=== PATIENT | male | born 1940 | race Caucasian/White ===

== ENCOUNTER 2020-02-10 15:09 | Outpatient (CLI) | payer MEDICARE, OTHER, SELFPAY ==
--- NOTE | ~2020-02-10 | XR_ITS ---
EXAMINATION: XR lumbar spine 2-3V DATE: 02/10/2020 15:32 INDICATION: Lumbar spine fusion. TECHNIQUE: 3 views of lumbar spine were obtained. COMPARISON: None. FINDINGS: There is 3 degrees dextrocurvature of lumbar spine. Vertebral body heights are normal. Inte rvertebral disc heights are normal. There are changes of anterior fusion procedure at L5-S1 with inte rbody devices. There are changes of posterior fusion procedure from L4 to S1 with pedicle screws. The re are endplate osteophytes at most levels. There is mild facet joint osteoarthritis in upper lumbar spine. IMPRESSION: 1. Mild lumbar spondylosis. 2. Anterior fusion procedure at L5-S1 and posterior fusion procedure from L4 to S1. Reviewed, dictated and finalized at location B. DRILL OPERATOR
== END 2020-02-10 15:10 | disposition home or self-care (01) ==
LOC: ANHIMG 15:18
PROVIDERS: PCP Internal Medicine; Visit Provider Neurological Surgery
DX: Z98.1 Arthrodesis status (principal); M47.816 Spondylosis without myelopathy or radiculopathy, lumbar region
CPT/HCPCS: 72100

== ENCOUNTER 2020-03-09 14:28 | Outpatient (CLI) | payer MEDICARE, OTHER, SELFPAY ==
--- NOTE | ~2020-03-09 | XR_ITS ---
XR lumbar spine 2-3V DATE: 03/09/2020 14:49 INDICATION: Lumbar spine fusion TECHNIQUE: AP, lateral and coned lateral lumbosacral views COMPARISON: 03/01/2020 lumbar spine FINDINGS: Status post posterior spinal fusion at L5-S1 and at L4-S1. Interbody spinal fusion at L5-S1 . No interval fracture or bone destruction or spondylolisthesis. There is mild degenerative spurring of the lumbar spine but the lumbar intervertebral disc spaces are relatively preserved. The sacroiliac joints are intact, with evidence of degenerative change. IMPRESSION: No significant change since 02/20/2020 Reviewed, dictated and finalized at location A. E TURNER
== END 2020-03-09 14:29 | disposition home or self-care (01) ==
LOC: ANHIMG 14:33
PROVIDERS: PCP Internal Medicine; Visit Provider Neurological Surgery
DX: Z98.1 Arthrodesis status (principal)
CPT/HCPCS: 72100

== ENCOUNTER 2024-07-26 10:44 | Outpatient (CLI) | payer MEDICARE, SELFPAY ==
--- OUTSIDE RECORDS SUMMARY | 2024-07-26 11:05 | XMS_ITS | Clinical Summary ---
Author Organization [facility] [address] [facility] Address [address] [place] [address] Care Team Providers Care Neurosurgery Research Director Name Role Phone Bhanu Borja MD Primary Care Provider Allergies Active Allergy Reactions Criticality Noted Date Comments Alfuzosin Hypotension,Other (S ee Comments) High 08/16/2017 Severe hypotension Severe hypotension Lisinopril Cough Low 12/20/2019 Oxycodone Other (See Comments),Delirium Medium 03/07/2012 Hallucinations Medications amLODIPine (NORVASC) 5 mg tablet Take 5 mg by mouth 1 time daily as needed for Other (See Comment) (takes if BP is over 160/100). 11/07/19 20 Active insulin glargine (LANTUS) 100 unit/mL injection Inject 18 Units by subcutaneous injection daily with breakfast. Active tamsulosin (FLOMAX) 0.4 mg capsule Take 0.4 mg by mouth daily. Active blood sugar diagnostic Strip USE TO TEST BLOOD BY FINGER STICK ONCE DAILY 12/16/19 21 Active latanoprost (XALATAN) 0.005 % solution Administer in both eyes daily. 05/25/19 22 Active cyclobenzaprin e (FLEXERIL) 5 mg Tablet Take 5 mg by mouth 3 times daily as needed. 03/06/20 23 Active HYDROcodone-ac etaminophen (NORCO) 5-325 mg tablet Take 1 Tablet by mouth every 4 hours as needed. 04/18/19 25 026 Active losartan (COZAAR) 50 mg tablet Take 50 mg by mouth daily. Active Ozempic 0.25 mg or 0.5 mg (2 mg/3 mL) Pen Injector Inject 0.5 mg by subcutaneous injection every 7 days. Monday06/14/19 Active losartan (COZAAR) 100 mg tablet Take 100 mg by mouth daily. 025 Discontinued semaglutide (OZEMPIC SUBCUT) Inject 0.05 mcg by subcutaneous injection every 7 days. 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 08/11/2020 S/P lumbar fusion 08/11/2020 Hard to intubate 01/22/2020 DDD (degenerative disc disease), lumbosacral Facet joint disease of lumbosacral region Acute cystitis without hematuria Longstanding persistent atrial fibrillation History of rheumatic fever Normocytic anemia Type 2 diabetes mellitus wit hout complication, without long-term current use of insulin Essential hypertension Encounters Date Type Department Care Team Description 07/24/2024 Travel 07/22/2024 Telephone [facility] [address] [address] Michel Rust MD Pending Imaging Studies 07/19/2024 Telephone [facility] [address] [address] Michel Rust MD Request for return call 06/03/2024 2:00 PM HEAT TREAT OPERATOR Office Visit [facility] [address] [address] Michel Rust MD Cervical spondylosis with myelopathy (Primary Dx); Flat back syndrome, postprocedural; S/P spinal fusion; Pseudarthrosis after fusion or arthrodesis; Neurogenic claudication due to lumbar spinal stenosis 05/23/2024 Telephone [facility] [address] [address] Michel Rust MD New Patient Appoitment Needed from Last 3 Months Family History Medical History Relation Name Comments Cancer Daughter Cee thyroid and [place] ast cancer Cancer Sister Sherin, glioblastoma Relation Name Status Comments Daughter Cee Alive Father Mother Sister Sherin, Social History Tobacco Use Types Packs/Day Years Used Date Smoking Tobacco: Never Smokeless Tobacco: Never Tobacco Cessation:Counseling Given: Not Answered Alcohol Use Standard Drinks/Week Comments Yes 6 (1 standard drink = 0.6 oz pur e alcohol) social Sex and Gender Information Value Date Recorded Sex Assigned at Male 02/27/2024 3:49 PM HEAT TREAT OPERATOR Legal Sex Male 2:47 PM CDT Gender Identity Male 02/27/2024 3:49 PM HEAT TREAT OPERATOR Sexual Orientation Straight 02/27/2024 3: 49 PM HEAT TREAT OPERATOR Last Filed Vital Signs Vital Sign Reading Time Taken Comments Blood Pressure 166/90 06/03/2024 1:41 PM HEAT TREAT OPERATOR Pulse 84 06/03/2024 1:41 PM HEAT TREAT OPERATOR Temperature 36.7 C (98.1 F) 06/03/2024 1:41 PM HEAT TREAT OPERATOR Respiratory Rate 16 06/03/2024 1:41 PM HEAT TREAT OPERATOR Oxygen Saturation 97% 06/03/2024 1:41 PM HEAT TREAT OPERATOR Inhaled Oxygen Concentration - - Weight 106.6 kg (235 lb) 07/24/2024 10:39 AM CDT Height 185.4 cm (6' 1 ) 07/24/2024 10:39 AM CDT Body Mass Index 31 07/24/2024 10:39 AM CDT Plan of Treatment Upcoming Encounters Date Type Department Care Team (Late st Contact Info) Description 08/01/2024 11:30 AM CDT Appointment [facility] Imaging Services [facility] [address] [place] [address] Michel Rust MD [address] [facility] [address] [place] [address] 08/01/2024 11:45 AM CDT Appointment [facility] Imaging Services [facility] [address] [place] [address] Michel Rust MD [address] [facility] [address] [place] [phone] 08/01/2024 12:00 PM CDT Appointment [facility] Imaging Services [facility] [address] [place] [address] Michel Rust MD [address] [facility] [address] [place] [phone] 08/22/2024 8:00 AM CDT Appointment [facility] [address] [place] [address] Michel Rust MD [address] [facility] [address] [place] [phone] [facility], [place] Generic Anesthesiologist 08/22/2024 9:00 AM CDT Appointment [facility] [address] [place] [address] Michel Rust MD [address] [facility] [address] [place] [phone] [facility], [place] Generic Anesthesiologist 08/22/2024 10:00 AM CDT Hospital Encounter [facility] [address] [place] [address] Michel Rust MD [address] [address] [facility], [place] Generic Anesthesiologist 09/02/2024 2:00 PM CDT Office Visit [facility] [address] [facility] [address] [place] [phone] Michel Rust MD [address] [address] Health Maintenance Due Date Last Done Comments DIABETES MICROALBUMIN ANNUAL SCREEN 1960 LDL CHOLESTEROL ANNUAL 1960 DTAP/TDAP/TD VACCINES (1 - Tdap) 1961 PNEUMOCOCCAL VACCINE 50+ YEA RS (1 of 2 - PCV) 1961 ZOSTER VACCINE (1 of 2) 1992 RSV VACCINE (60+ or ) (1 - 1-dose 75+ series) 2017 INFLUENZA VACCINE (#1) 2023 Medicare [place] Preventative Visit/Annual Wellness Visit 04/03/2024 07/28/2023, 07/25/2022, 07/01/2021 DIABETES HBA1C Q 6 MONTHS 07/24/20242023, 07/20/2022, 01/03/2022, Additional history exists DIABETES ANNUAL FOOT EXAM 02/01/2025 02/02/2024 DIABETES ANNUAL RETINAL EXAM 03/14/202503/2024, 09/15/2022, 07/15/2022, Additional history exists COLORECTAL SCREENING Discontinued 06/28/2013 Colorectal Cancer Screening Discontinued FIT-DNA Q 3 years Discontinued FIT/FOBT Q 1 year Discontinued Flex Sig/CT Colonography Q 5 years Discontinued Medical Devices Implanted Type Area Interpreter For The Deaf Device Identifier Shelf Expiration Date Model / Serial / Lot Filler Bone Stimulan Paste 5cc W/Beads 620-005 - Sna Implanted:Qty: 1 on 01/22/2020 by Pan Rudolph MD at [facility] Biological N/A: Spine Lumbar [employer] 05/03/2022 620-005 / NA / [id number] Description:JEFF REQ#[id number] Hemostatic Surgiflo 8ml W/Thrombin 2994 - Sn/A Implanted:Qty: 1 on 01/22/2020 by Pan Rudolph MD at [facility] Hemostatic N/A: Spine Lumbar [employer] 12/31/2020 2994 / N/A / [id number] Mingo Solera Ccm Crv [id number] - Sn/A Implanted:Qty: 2 on 01/22/2020 by Pan Rudolph MD at [facility] Mingo N/A: Spine Lumbar [employer] SOFAMOR DANEK [id number] / N/A / N/A Description:LOAD NUMBER: [id number] STERILIZED NUMBER: [id number] JEFF REQ#[id number] Screw Solera Ma 7.5x60mm [id number] Implanted:Qty: 1 on 01/22/2020 by Pan Rudolph MD at [facility] N/A: Spine Lumbar [employer] [id number] / STERILIZED 01/21/2020 / LOAD #[id number] Description:ENTERED BY RN 10 [id number] 1X ADD Screw Solera Breakoff [id number] - Sn/A Implanted:Qty: 6 on 01/22/2020 by Pan Rudolph MD at [facility] N/A: Spine Lumbar [employer]ANE[employer] [id number] / N/A / N/A Description:LOAD NUMBER: [id number] STERILIZED NUMBER: [id number] Screw Solera Ma 5.5x40mm [id number] - Sn/A Implanted:Qty: 1 on 01/22/2020 by Pan Rudolph MD at [facility] N/A: Spine Lumbar [employer] [id number] / N/A / N/A Description:LOAD NUMBER: [id number] STERILIZED NUMBER: [id number] Screw Solera Ma 5.5x45mm [id number] - Sn/A Implanted:Qty: 1 on 01/22/2020 by Pan Rudolph MD at [facility] N/A: Spine Lumbar [employer] [id number] / N/A / N/A Description:LOAD NUMBER: [id number] STERILIZED NUMBER: [id number] Screw Solera Ma 7.5x45mm [id number] - Sn/A Implanted:Qty: 2 on 01/22/2020 by Pan Rudolph MD at [facility] N/A: Spine Lumbar [employer] [id number] / N/A / N/A Description:LOAD NUMBER: [id number] STERILIZED NUMBER: [id number] Screw Solera Ma 7.5x50mm [id number] - Sn/A Implanted:Qty: 1 on 01/22/2020 by Pan Rudolph MD at [facility] N/A: Spine Lumbar [employer] [id number] / N/A / N/A Description:LOAD NUMBER: [id number] STERILIZED NUMBER: [id number] Infuse Protein Kit [id number] - Sn/A Implanted:Qty: 1 on 01/22/2020 by Pan Rudolph MD at [facility] Tissue N/A: Spine Lumbar [employer]K 12/01/2020 [id number] / N/A / [id number] Description:REQ [id number] Allograft Magnifuse Pc [id number] - [id number] Implanted:Qty: 1 on 01/22/2020 by Pan Rudolph MD at [facility] Tissue N/A: Spine Lumbar [employer] 07/03/2021 [id number] / [id number] / N/A Description:REQ [id number] Insurance [facility] [id number] RX [facility] Medicare Part D RX [employer] (INTERNAL) [facility] Plans Advance Directives For more information, please contact: [phone] Documents on File Type Date Recorded 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
--- OUTSIDE RECORDS SUMMARY | 2024-07-26 11:05 | XMS_ITS | Clinical Summary ---
Author Organization [facility] Address [address] [place] [address] Phone Care Team Providers Care Media Relations Associate Name Role Phone Bhanu Borja MD Primary Care Provider Allergies Active Allergy Reactions Criticality Noted Date Comments Hydrocodone Other (see Comments) Low 06/06/2019 Hallucinations and felt like I was out of my head . Lisinopril Other (see Comments) Low 06/06/2019 Reaction: Cough, Reaction: Cough, Medications insulin degludec (TRESIBA) 100 UNIT/ML Solution Pen-injector 16 Units by Subcutaneous route. 5 Active losartan (COZAAR) 50 MG Tablet Take 50 mg by mouth. 4 12/13/19 25 Active Ozempic, 0.25 or 0.5 MG/DOSE, 2 MG/3ML Solution Pen-injector INJECT 0.5 MG UNDER THE SKIN ONCE A WEEK 4 Active Active Problems Problem Noted Date Diagnosed Date Acute renal failure 06/04/2024 Longstanding persistent atrial fibrillation 07/2024 Hypertension associated with diabetes 08/17/2013 Overview (06/04/2024): BENIGN HYPERTENSION Encounters Date Type Department Care Team Description 06/04/2024 10:00 AM NUCLEAR RADIATION ENGINEER Urgent Care Visit [facility] [place] [address] [place] [address] Kaylee Lan, ONLINE MERCHANDISING MANAGER, GEOTHERMAL INSTALLER Influenza A (Primary Dx); Cough in adult; Generalized body aches; Hypertension associated with diabetes (HCC); Acute renal failure, unspecified acute renal failure type (HCC) Discharge Disposition: Discharged to home or Selfcare 06/04/2024 Travel from Last 3 Months Social History Tobacco Use Types Packs/Day Years Used Date Smoking Tobacco: Never Passive Smoke Exposure: Never Smokeless Tobacco: Never Tobacco Cessation:Counseling Given: Not Answered Sex and Gender Information Value Date Recorded Sex Assigned at Not on file Legal Sex Male 7:30 PM CDT Gender Identity Not on file Sexual Orientation Not on file Last Filed Vital Signs Vital Sign Reading Time Taken Comments Blood Pressure 158/86 06/04/2024 10:43 AM NUCLEAR RADIATION ENGINEER Pulse 100 06/04/2024 10:09 AM NUCLEAR RADIATION ENGINEER Temperature 36.9 C (98.4 F) 06/04/2024 10:09 AM NUCLEAR RADIATION ENGINEER Respiratory Rate 20 06/04/2024 10:0 9 AM NUCLEAR RADIATION ENGINEER Oxygen Saturation 94% 06/04/2024 10: 09 AM NUCLEAR RADIATION ENGINEER Inhaled Oxygen Concentration - - Weight 111.7 kg (246 lb 3.2 oz) 025 10:09 AM NUCLEAR RADIATION ENGINEER Height - - Body Mass Index - - Plan of Treatment Health Maintenance Due Date Last Done Comments Diabetes: Foot Exam 1940 Hepatitis C Virus (HCV) Screening 1940 TdaP Immunization 1942 Diabetes: Nephropathy Screening 1960 Pneumococcal Immunization (5 0+ years) (1 of 2 - PCV) 1961 Zoster Immunization (1 of 2) 1992 Respiratory Syncytial Virus (RSV) Immunization (Adult) (1 - 1-dose 75+ series) 2017 Influenza Immunization (#1) 2023 SARS-COV-2 Immunization ( - season) 2023 Diabetes: Hemoglobin A1c 07/24/2024 01/24/2024 Diabetes: Eye Exam 03/14/2025 03/14/2024 Hepatitis B Immunization Aged Out No longer eligible based on patient's age to complete this topic Meningococcal Immunization (ACWY) Aged Out No longer eligible based on patient's age to complete this topic Rotavirus Immunization Aged Out No lo nger eligible based on patient's age to complete this topic Procedures Procedure Name Priority Date/Time Associated Diagnosis Comments POC INFLUENZA A AND B BY MOLECULAR Routine 06/04/2024 10:29 AM NUCLEAR RADIATION ENGINEER Cough in adult Generalized body aches POC SARS-COV-2 BY MOLECULAR Routine 06/04/2024 10:28 AM NUCLEAR RADIATION ENGINEER Cough in adult Generalized body aches from Last 3 Months Results * (ABNORMAL) POC INFLUENZA A AND B BY MOLECULAR (06/04/2024 10:29 AM NUCLEAR RADIATION ENGINEER) INFLUENZA A RNA Positive(A) Negative, Invalid INFLUENZA B RNA Negative Negative, Invalid PROCEDURE CONTROL Valid 06/04/2024 10:2 9 AM NUCLEAR RADIATION ENGINEER Kaylee Lan APRN, CARMINE POINT OF CARE TESTI NG (MANUAL) Final Result * POC SARS-COV-2 BY MOLECULAR (06/04/2024 10:28 AM NUCLEAR RADIATION ENGINEER) SARSCOV2 Negative Negative, INVALID PROCEDURE CONTROL Valid 06/04/2024 10:2 8 AM NUCLEAR RADIATION ENGINEER us Kaylee Lan APRN, CARMINE POINT OF CARE TESTI NG (MANUAL) Final Result from Last 3 Months Insurance MEDICARE C [facility] Care Teams Media Relations Associate Relationship Specialty Start Date End Date Bhanu Borja MD [address] [facility] [address] [address] PCP - General Internal Medicine 06/04/24
--- OUTSIDE RECORDS SUMMARY | 2024-07-26 11:05 | XMS_ITS | Encounter Summary ---
Author Organization [facility] Address [address] [address] Care Team Providers Care Medical Service Representative Name Role Phone Unavailable Primary Care Provider Unavailabl e Encounter Details Date Type Department Care Team (Late st Contact Info) Description 07/05/2023 Lab Requisition [facility] - DermPath Lab [address] [facility] [place] [phone] Juan Maldonado Jr., MD [address] [facility] [address] [place] [address] Social History Tobacco Use Types Packs/Day Years Used Date Smoking Tobacco: Never Assessed Sex and Gender Information Value Date Recorded Sex Assigned at Not on file Legal Sex Male 11:19 AM CDT Gender Identity Not on file Sexual Orientation Not on file documented as of this encounter Plan of Treatment Not on file documented as of this encounter Procedures Procedure Name Priority Date/Time Associated Diagnosis Comments DERMATOPATHOLOGY Routine 07/05/2023 3:33 AM CDT documented in this encounter Results * DERMATOPATHOLOGY (07/05/2023 3:33 AM CDT) Case Report Dermatopathology Report Case: [id number] Authorizing Provider: Juan Maldonado Jr., MD Collected: 07/05/2023 03:33 AM Ordering Location: [facility] - Received: 07/05/2023 11:54 AM DermPath Lab Pathologist: Joan Kumari MD Specimen: Skin, right lateral abdomen 1:18 PM CDT DERMATOPATHOLOGY LABORATORY Final Diagnosis Specimen A. SKIN, right lateral abdomen: BASAL CELL CARCINOMA (C44.519) NOT PRESENT AT MARGIN DERMAL SCAR (L90.5) 1:18 PM CDT DERMATOPATHOLOGY LABORATORY Clinical History Basal cell Carcinoma, Check Margins 1:18 PM T DERMATOPATHOLOGY LABORATORY Gross Description Specimen A: Received is one formalin filled container labeled with the patient's name and designated right lateral abdomen.The specimen consists of an ellipse measuring 43g21e4 mm and is oriented with the suture/notch at the 3 o'clock position labeled on the requisition as superior. Also, there a lesion measuring 2x3 mm. The 12 to 6 o'clock margin is inked green. The 6 o'clock to 12 o'clock margin is inked red. The 12 o'clock tip is submitted in cassette 1. The 6 o'clock tip is submitted in cassette 2. The remainder of the ellipse is serially sectioned and submitted in cassettes 3 - 4. Jar 0. 1:18 PM T DERMATOPATHOLOGY LABORATORY Microscopic Description Specimen A. SKIN, right lateral abdomen: Within the dermis there are aggregates of basaloid cells with a high nuclear to cytoplasmic ratio and peripheral palisading. This lesion is not present at the margin of the specimen. There are fibroblasts and collagen bundles oriented parallel to the skin surface with elongated blood vessels, some of which are oriented perpendicular to the skin surface. 1:18 PM T DERMATOPATHOLOGY LABORATORY Disclaimer An external and internal positive and negative controls are appropriate for the histochemical, immunohistochemical and immunofluorescence stain(s) in this case (if any), except where stated explicitly. The performance characteristics of the stain(s) cited in this report were developed and its performance characteristic determined by the Dermatopathology Laboratory at [facility], directed by Dr. Afia Gomez. These tests need not be, and therefore are not, approved by the [place] Food and Drug Administration. The tests are used for clinical purposes. Billing Codes Specimen Charges Stain Charges 29239 1 1:18 PM CDT DERMATOPATHOLOGY LABORATORY Embedded Images 1:18 PM CDT DERMATOPATHOLOGY LABORATORY Pathology/Cytolo gy TISSUE SPECIMEN FROM SKIN / Unknown 07/05/2023 3:33 AM CDT 07/05/2023 11:54 AM CDT us Juan Maldonado Jr., MD LAB - PATHOLOGY/CYTOLOG Y ORDERABLES Final Result DERMATOPATHOLOGY LABORATORY [facility] - Department of Dermatology [facility] Medicine [address] [place] [address], [address] [phone] documented in this encounter Visit Diagnoses Not on filedocumented in this encounter
--- OUTSIDE RECORDS SUMMARY | 2024-07-26 11:05 | XMS_ITS | Encounter Summary ---
Author Organization [facility] Address [address] [place] [address] Care Team Providers Care Delivery Nurse Name Role Phone Unavailable Primary Care Provider Unavailabl e Encounter Details Date Type Department Care Team (Late st Contact Info) Description 01/26/2024 Lab Requisition [facility] - DermPath Lab [address] [facility], [place] [id number] Juan Maldonado Jr., MD [address] [facility] [address] [place] [address] Social History Tobacco Use Types Packs/Day Years [...] Priority Date/Time Associated Diagnosis Comments DERMATOPATHOLOGY Routine 01/25/2024 3:33 AM CDT documented in this encounter Results * DERMATOPATHOLOGY (01/25/2024 3:33 AM CDT) Case Report Dermatopathology Report Case: [id number] Authorizing Provider: Juan Maldonado Jr., MD Collected: 01/25/2024 03:33 AM Ordering Location: [facility] - Received: 01/26/2024 11:27 AM DermPath Lab Pathologist: Joan Kumari MD Specimen: Skin, right proximal dorsal forearm 2:37 PM CDT DERMATOPATHOLOGY LABORATORY Final Diagnosis Specimen A. SKIN, right proximal dorsal forearm: BASAL CELL CARCINOMA (C44.612) NOT PRESENT AT MARGIN DERMAL SCAR (L90.5) 2:37 PM CDT DERMATOPATHOLOGY LABORATORY Clinical History BCC 2:37 PM T DERMATOPATHOLOGY LABORATORY Gross Description Specimen A: Received is one formalin filled container labeled with the patient's name and designated right proximal dorsal forearm.The specimen consists of an ellipse measuring 09w81t6 mm and is oriented with the suture at the 12 o'clock position labeled on the requisition as suture. The 12 to 6 o'clock margin is inked green. The 6 o'clock to 12 o'clock margin is inked red. The 12 o'clock tip is submitted in cassette 1. The 6 o'clock tip is submitted in cassette 2. The remainder of the ellipse is serially sectioned and submitted in cassettes 3-4. Jar 0. 2:37 PM [facility] DERMATOPATHOLOGY LABORATORY Microscopic Description Specimen A. SKIN, right proximal dorsal forearm: Within the dermis there are aggregates of basaloid cells with a high nuclear to cytoplasmic ratio and peripheral palisading. This lesion is not present at the margin of the specimen. There are fibroblasts and collagen bundles oriented parallel to the skin surface with elongated blood vessels, some of which are oriented perpendicular to the skin surface. 2:37 PM T DERMATOPATHOLOGY LABORATORY Disclaimer An external and internal positive and negative controls are appropriate for the histochemical, immunohistochemical and immunofluorescence stain(s) in this case (if any), except where stated explicitly. The performance characteristics of the stain(s) cited in this report were developed and its performance characteristic determined by the Dermatopathology Laboratory at [facility], directed by Dr. Afia Gomez. These tests need not be, and therefore are not, approved by the [place] Food and Drug Administration. The tests are used for clinical purposes. Billing Codes Specimen Charges Stain Charges 65728 1 2:37 PM CDT DERMATOPATHOLOGY LABORATORY Embedded Images 2:37 PM T DERMATOPATHOLOGY LABORATORY Pathology/Cytolo gy TISSUE SPECIMEN FROM SKIN / Unknown 01/25/2024 3:33 AM CDT 01/26/2024 11:27 AM CDT us Juan Maldonado Jr., MD LAB - PATHOLOGY/CYTOLOG Y ORDERABLES Final Result DERMATOPATHOLOGY LABORATORY [facility] - Department of Dermatology [facility] Medicine [address] [place] [address], [address] [phone] documented in this encounter Visit Diagnoses Not on filedocumented in this encounter
--- OUTSIDE RECORDS SUMMARY | 2024-07-26 11:05 | XMS_ITS | Encounter Summary ---
Author Organization [facility] Address [address] [place] [address] Care Team Providers Care Scale Operator Name Role Phone Unavailable Primary Care Provider Unavailabl e Encounter Details Date Type Department Care Team (Late st Contact Info) Description 06/04/2021 Lab Requisition [facility] DermPath Lab [address] [facility], [place] [address] Juan Maldonado Jr., MD [address] [facility] [address] [place] [address] Social History Tobacco Use Types Packs/Day Years [...] Priority Date/Time Associated Diagnosis Comments DERMATOPATHOLOGY Routine 06/03/2021 12:0 0 AM VAMP MARKER documented in this encounter Results * DERMATOPATHOLOGY (06/03/2021 12:00 AM VAMP MARKER) Case Report Dermatopathology Report Case: [id number] Authorizing Provider: Juan Maldonado Jr., MD Collected: 06/03/2021 12:00 AM Ordering Location: [facility] DermPath Lab Received: 06/04/2021 12:20 PM Pathologist: Joan Kumari MD Specimen: Skin, right superior central forehead 2 3:22 PM VAMP MARKER DERMATOPATHOLOGY LABORATORY Final Diagnosis Specimen A. 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 2 3:22 PM [facility] DERMATOPATHOLOGY LABORATORY Gross Description Specimen A: Received is one formalin filled container labeled with the patient's name and designated right superior central forehead. The specimen consists of a shave biopsy measuring 7x5x1 mm. Jar 0. 2 3:22 PM [facility] DERMATOPATHOLOGY LABORATORY Microscopic Description Specimen A. SKIN, right superior central forehead: Sections show skin with irregularly shaped nests of keratinocytes with evidence of cornification. In some nests, there is loss of cohesion between the neoplastic cells, as well as individual dyskeratotic cells that lack intercellular bridges. 2 3:22 PM [facility] DERMATOPATHOLOGY LABORATORY Disclaimer An external and internal positive and negative controls are appropriate for the histochemical, immunohistochemical and immunofluorescence stain(s) in this case (if any), except where stated explicitly. The performance characteristics of the stain(s) cited in this report were developed and its performance characteristic determined by the Dermatopathology Laboratory at [facility], directed by Dr. Afia Gomez. These tests need not be, and therefore are not, approved by the [place] Food and Drug Administration. The tests are used for clinical purposes. Billing Codes Specimen Charges Stain Charges 38234 1 2 3:22 PM [facility] DERMATOPATHOLOGY LABORATORY Embedded Images 2 3:22 PM [facility] DERMATOPATHOLOGY LABORATORY Pathology/Cytolog y TISSUE SPECIMEN FROM SKIN / Unknown 06/03/2021 06/04/2021 12:20 PM VAMP MARKER Juan Maldonado Jr., MD LAB - PATHOLOGY/CYTOLOG Y ORDERABLES Final Result DERMATOPATHOLOGY LABORATORY [facility] - Department of Dermatology [address], [address] [phone] documented in this encounter Visit Diagnoses Not on filedocumented in this encounter
--- OUTSIDE RECORDS SUMMARY | 2024-07-26 11:05 | XMS_ITS | Encounter Summary ---
Author Organization [facility] Address [address] [place] [address] Care Team Providers Care Strawberry Grower Name Role Phone Unavailable Primary Care Provider Unavailabl e Encounter Details Date Type Department Care Team (Late st Contact Info) Description 12/01/2023 Lab Requisition [facility] - DermPath Lab [address] [facility] [place] [id number] Juan Maldonado Jr., MD [address] [facility] [address] [place] [address] Social History Tobacco Use Types Packs/Day Years [...] Priority Date/Time Associated Diagnosis Comments DERMATOPATHOLOGY Routine 2023 12:0 0 AM CDT documented in this encounter Results * DERMATOPATHOLOGY (2023 12:00 AM CDT) Case Report Dermatopathology Report Case: [id number] Authorizing Provider: Juan Maldonado Jr., MD Collected: 2023 12:00 AM Ordering Location: [facility] - Received: 12/01/2023 12:26 PM DermPath Lab Pathologist: Venessa Brush MD Specimen: Skin, right proximal dorsal forearm 2:15 PM CDT DERMATOPATHOLOGY LABORATORY Final Diagnosis Specimen A. 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 The specimen consists of a shave biopsy measuring 5x5x1 mm. Jar 0. 2:15 PM CDT DERMATOPATHOLOGY LABORATORY Microscopic Description Specimen A. SKIN, right proximal dorsal forearm: Within the dermis there are aggregates of basaloid cells with a high nuclear to cytoplasmic ratio and peripheral palisading. Within the dermis, there are aggregates of homogenous amorphous basophilic material consistent with calcium. 2:15 PM CDT DERMATOPATHOLOGY LABORATORY Disclaimer An external and internal positive and negative controls are appropriate for the histochemical, immunohistochemical and immunofluorescence stain(s) in this case (if any), except where stated explicitly. The performance characteristics of the stain(s) cited in this report were developed and its performance characteristic determined by the Dermatopathology Laboratory at [facility], directed by Dr. Afia Gomez. These tests need not be, and therefore are not, approved by the [place] Food and Drug Administration. The tests are used for clinical purposes. Billing Codes Specimen Charges Stain Charges 04100 1 2:15 PM CDT DERMATOPATHOLOGY LABORATORY Embedded Images 2:15 PM CDT DERMATOPATHOLOGY LABORATORY Pathology/Cytolog y TISSUE SPECIMEN FROM SKIN / Unknown 2023 12/01/2023 12:26 PM CDT us Juan Maldonado Jr., MD LAB - PATHOLOGY/CYTOLOG Y ORDERABLES Final Result DERMATOPATHOLOGY LABORATORY [facility] - Department of Dermatology [address], [address] [phone] documented in this encounter Visit Diagnoses Not on filedocumented in this encounter
--- OUTSIDE RECORDS SUMMARY | 2024-07-26 11:05 | XMS_ITS | Encounter Summary ---
Author Organization [facility] Address [address] [place] [address] Care Team Providers Care Document Processor Name Role Phone Unavailable Primary Care Provider Unavailabl e Encounter Details Date Type Department Care Team (Late st Contact Info) Description 06/02/2023 Lab Requisition [facility] - DermPath Lab [address] [facility], [place] [phone] Juan Maldonado Jr., MD [address] [facility] [address] [place] [address] Social History Tobacco Use Types Packs/Day Years [...] Priority Date/Time Associated Diagnosis Comments DERMATOPATHOLOGY Routine 06/01/2023 3:33 AM PHARMACY GENERAL MANAGER documented in this encounter Results * DERMATOPATHOLOGY (06/01/2023 3:33 AM PHARMACY GENERAL MANAGER) Case Report Dermatopathology Report Case: [id number] Authorizing Provider: Juan Maldonado Jr., MD Collected: 06/01/2023 03:33 AM Ordering Location: [facility] DermPath Lab Received: 06/02/2023 01:06 PM Pathologist: Venessa Brush MD Specimens: A) - Skin, right superior lateral lower back B) - Skin, left superior forehead C) - Skin, right central parietal 3:04 PM PHARMACY GENERAL MANAGER DERMATOPATHOLOGY LABORATORY Final Diagnosis Specimen A. SKIN, right superior lateral lower back: BASAL CELL CARCINOMA, NODULAR TYPE (C44.519) Specimen B. SKIN, left superior forehead: BASAL CELL CARCINOMA, NODULAR TYPE (C44.319) Specimen C. SKIN, right central parietal: BASAL CELL CARCINOMA, NODULAR TYPE (C44.41) 3:04 PM [facility] DERMATOPATHOLOGY LABORATORY Clinical History A-C: Basal Cell Carcinoma. 3:04 PM [facility] DERMATOPATHOLOGY LABORATORY Gross Description Specimen A: Received is one formalin filled container labeled with the patient's name and designated right superior lateral lower back. The specimen consists of a shave biopsy measuring 9x5x1 mm. Jar 0. Specimen B: Received is one formalin filled container labeled with the patient's name and designated left superior forehead. The specimen consists of a shave biopsy measuring 7x6x1 mm. Jar 0. Specimen C: Received is one formalin filled container labeled with the patient's name and designated right central parietal. The specimen consists of a shave biopsy measuring 8x5x1 mm. Jar 0. 3:04 PM [facility] DERMATOPATHOLOGY LABORATORY Microscopic Description Specimen A. SKIN, right superior lateral lower back: Within the dermis there are aggregates of basaloid cells with a high nuclear to cytoplasmic ratio and peripheral palisading. Specimen B. SKIN, left superior forehead: Within the dermis there are aggregates of basaloid cells with a high nuclear to cytoplasmic ratio and peripheral palisading. Specimen C. SKIN, right central parietal: Within the dermis there are aggregates of basaloid cells with a high nuclear to cytoplasmic ratio and peripheral palisading. 3:04 PM [facility] DERMATOPATHOLOGY LABORATORY Disclaimer An external and internal positive and negative controls are appropriate for the histochemical, immunohistochemical and immunofluorescence stain(s) in this case (if any), except where stated explicitly. The performance characteristics of the stain(s) cited in this report were developed and its performance characteristic determined by the Dermatopathology Laboratory at [facility], directed by Dr. Afia Gomez. These tests need not be, and therefore are not, approved by the [place] Food and Drug Administration. The tests are used for clinical purposes. Billing Codes Specimen Charges Stain Charges 83594 43296 49738 1 1 1 3:04 PM [facility] DERMATOPATHOLOGY LABORATORY Embedded Images 3:04 PM PHARMACY GENERAL MANAGER DERMATOPATHOLOGY LABORATORY Pathology/Cytology TISSUE SPECIMEN FROM SKIN / Unknown 06/01/2023 3:33 AM PHARMACY GENERAL MANAGER 06/02/2023 1:06 PM PHARMACY GENERAL MANAGER Miscellaneous samples (specimen) TISSUE SPECIMEN FROM SKIN / Unknown 06/01/2023 3:33 AM PHARMACY GENERAL MANAGER 06/02/2023 1:06 PM PHARMACY GENERAL MANAGER Miscellaneous samples (specimen) TISSUE SPECIMEN FROM SKIN / Unknown 06/01/2023 3:33 AM PHARMACY GENERAL MANAGER 06/02/2023 1:06 PM PHARMACY GENERAL MANAGER Juan Maldonado Jr., MD LAB - PATHOLOGY/CYTOLOG Y ORDERABLES Final Result DERMATOPATHOLOGY LABORATORY [facility] - Department of Dermatology [facility] Specialized Medicine [address] [place] [address], [address] [phone] documented in this encounter Visit Diagnoses Not on filedocumented in this encounter
--- OUTSIDE RECORDS SUMMARY | 2024-07-26 11:05 | XMS_ITS | Encounter Summary ---
Author Organization [facility] Address [address] [place] [address] Care Team Providers Care Human Anatomy Teacher Name Role Phone Unavailable Primary Care Provider Unavailabl e Encounter Details Date Type Department Care Team (Late st Contact Info) Description 08/28/2020 Lab Requisition [facility] DermPath Lab [address] [facility], [place] [phone] Juan Maldonado Jr., MD [address] [facility] [address] [place] [address] Social History Tobacco Use Types Packs/Day Years [...] Priority Date/Time Associated Diagnosis Comments DERMATOPATHOLOGY Routine 08/26/2020 12:0 0 AM CDT documented in this encounter Results * DERMATOPATHOLOGY (08/26/2020 12:00 AM CDT) Case Report Dermatopathology Report Case: [id number] Authorizing Provider: Juan Maldonado Jr., MD Collected: 08/26/2020 12:00 AM Ordering Location: [facility] DermPath Lab Received: 08/28/2020 07:20 AM Pathologist: Donna Gomez MD Specimen: Skin, right distal posterior upper arm 3:15 PM CDT DERMATOPATHOLOGY LABORATORY Final Diagnosis Specimen A. SKIN, right distal posterior upper arm: DERMAL SCAR WITH OVERLYING EPIDERMAL CHANGES (L90.5) RESIDUAL SQUAMOUS CELL CARCINOMA NOT IDENTIFIED (L90.5) BENIGN VERRUCOUS KERATOSIS, INFLAMED AND INCIDENTAL; NOT PRESENT AT MARGIN (L82.1) 3:[address] [facility] DERMATOPATHOLOGY LABORATORY Clinical History Keratoacanthoma. Check margins. . 3:[address] [facility] DERMATOPATHOLOGY LABORATORY Gross Description Specimen A: Received is one formalin filled container labeled with the patient's name and designated right distal posterior upper arm.The specimen consists of an ellipse measuring 28s04t9oe and is oriented with the suture at the 12 o'clock position labeled on the requisition as suture placed superior. The 12 to 6 o'clock margin is inked green. The 6 o'clock to 12 o'clock margin is inked black. The 12 o'clock tip is submitted in cassette 1. The 6 o'clock tip is submitted in cassette 2. The remainder of the ellipse is serially sectioned and submitted in cassettes 3-4. Jar 0. 3:[address] [facility] DERMATOPATHOLOGY LABORATORY Microscopic Description Specimen A. SKIN, right distal posterior upper arm: Sections show focally laminated fibroplasia and prominent blood vessels. There are plump fibrocytes and inflammation. Reactive epidermal changes are also identified consistent with a prior biopsy site. No residual squamous cell carcinoma is identified. In block 3 and 4, sections also show hyperkeratosis, papillomatosis, hypergranulosis, and acanthosis. Inflammatory cells are present within the dermis. These histological findings can be seen in a verruca vulgaris or a seborrheic keratosis. This lesion is not present at the margin of the specimen. 3:[address] [facility] DERMATOPATHOLOGY LABORATORY Disclaimer An external and internal positive and negative controls are appropriate for the histochemical, immunohistochemical and immunofluorescence stain(s) in this case (if any), except where stated explicitly. The performance characteristics of the stain(s) cited in this report were developed and its performance characteristic determined by the Dermatopathology Laboratory at [facility], directed by Dr. Afia Gomez. These tests need not be, and therefore are not, approved by the [place] Food and Drug Administration. The tests are used for clinical purposes. Billing Codes Specimen Charges Stain Charges 91405 1 1 3:15 PM T DERMATOPATHOLOGY LABORATORY Embedded Images 3:15 PM CDT DERMATOPATHOLOGY LABORATORY Pathology/Cytolog y TISSUE SPECIMEN FROM SKIN / Unknown 08/26/2020 08/28/2020 7:20 AM CDT us Juan Maldonado Jr., MD LAB - PATHOLOGY/CYTOLOG Y ORDERABLES Final Result DERMATOPATHOLOGY LABORATORY [facility] - Department of Dermatology [facility] Medicine [address] [place] [address], [address] [phone] documented in this encounter Visit Diagnoses Not on filedocumented in this encounter
--- OUTSIDE RECORDS SUMMARY | 2024-07-26 11:05 | XMS_ITS | Encounter Summary ---
Author Organization [facility] Address [address] [facility] [place] [address] Care Team Providers Care Special Machine Stitcher Name Role Phone Unavailable Primary Care Provider Unavailabl e Encounter Details Date Type Department Care Team (Late st Contact Info) Description 07/30/2020 Lab Requisition [facility] DermPath Lab [address] [facility] [place] [address] Juan Maldonado Jr., MD [address] [facility] [address] [place] [address] Social History Tobacco Use Types Packs/Day Years [...] Priority Date/Time Associated Diagnosis Comments DERMATOPATHOLOGY Routine 07/29/2020 12:0 0 AM CDT documented in this encounter Results * DERMATOPATHOLOGY (07/29/2020 12:00 AM CDT) Case Report Dermatopathology Report Case: [id number] Authorizing Provider: Juan Maldonado Jr., MD Collected: 07/29/2020 12:00 AM Ordering Location: [facility] DermPath Lab Received: 07/30/2020 12:00 PM Pathologist: Donna Gomez MD Specimen: Skin, right distal lateral posterior upper arm 1:50 PM CDT DERMATOPATHOLOGY LABORATORY Final Diagnosis Specimen A. 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 1:50 PM CDT DERMATOPATHOLOGY LABORATORY Gross Description Specimen A: Received is one formalin filled container labeled with the patient's name and designated right distal lateral posterior upper arm. The specimen consists of a shave biopsy measuring 58g57q1zu, bisected. Jar 0. 1 1:50 PM CDT DERMATOPATHOLOGY LABORATORY Microscopic Description Specimen A. SKIN, right distal lateral posterior upper arm: Sections show an endo exophytic crateriform lesion with a keratotic plug, formed by confluent follicle-like structures with relatively large keratinocytes and neutrophilic abscesses. 1:50 PM CDT DERMATOPATHOLOGY LABORATORY Disclaimer An external and internal positive and negative controls are appropriate for the histochemical, immunohistochemical and immunofluorescence stain(s) in this case (if any), except where stated explicitly. The performance characteristics of the stain(s) cited in this report were developed and its performance characteristic determined by the Dermatopathology Laboratory at [facility], directed by Dr. Afia Gomez. These tests need not be, and therefore are not, approved by the [place] Food and Drug Administration. The tests are used for clinical purposes. Billing Codes Specimen Charges Stain Charges 77642 1 1 1:50 PM CDT DERMATOPATHOLOGY LABORATORY Embedded Images 1:50 PM CDT DERMATOPATHOLOGY LABORATORY Pathology/Cytolog y TISSUE SPECIMEN FROM SKIN / Unknown 07/29/2020 07/30/2020 12:00 PM CDT us Juan Maldonado Jr., MD LAB - PATHOLOGY/CYTOLOG Y ORDERABLES Final Result DERMATOPATHOLOGY LABORATORY [facility] - Department of Dermatology [address] [place] [address], [facility] [phone] documented in this encounter Visit Diagnoses Not on filedocumented in this encounter
--- OUTSIDE RECORDS SUMMARY | 2024-07-26 11:05 | XMS_ITS | Referral Summary ---
Author Organization [facility] Address [address] [place] [address] Care Team Providers Care Marketing Content Coordinator Name Role Phone Bhanu Borja MD Primary Care Provider Encounters Date Type Department Care Team Description 07/16/2024 Orders Only [facility] Primary Care at [address] [phone] Bhanu Borja MD Encounter for hearing examination, unspecified whether abnormal findings (Primary Dx) 07/16/2024 8:30 AM CDT Office Visit [facility] Medical [facility] Orthopedics and Sports Medicine [address] [place] [phone] Bhanu Maddox MD Acute medial meniscus tear of left knee, initial encounter (Primary Dx); Primary osteoarthritis of left knee 07/15/2024 Telephone [facility] Primary Care at [address] [phone] Bhanu Borja MD Referral Request 06/17/2024 Orders Only [facility] Primary Care at [address] [place] [phone] Camila Mirza, PARVEEN 06/17/2024 Telephone [facility] Primary Care at [address] [place] [phone] Camila Mirza, TRANSIT MECHANIC 06/14/2024 Telephone [facility] [place] [address] [place] [address] Riana Cox Colonoscopy Reschedule 06/13/2024 Orders Only [facility] Primary Care at [address] [place] [address] Bhanu Borja MD 06/13/2024 Telephone [facility] Primary Care at [address] [place] [address] Bhanu Borja MD Med Refill 06/13/2024 11:00 AM CDT Office Visit [facility] Primary Care at [address] [place] [address] Camila Mirza NP Lower resp. tract infection (Primary Dx); Acute cough; Class 1 obesity with body mass index (BMI) of 31.0 to 31.9 in adult, unspecified obesity type, unspecified whether serious comorbidity present 06/13/2024 Nurse Triage [facility] Primary Care at [address] [place] [address] Bhanu Borja MD 06/03/2024 6:39 AM [employer] - 06/03/2024 11:59 PM [employer] Hospital Encounter [facility] [address] [place] [address] Left knee pain, unspecified chronicity Discharge Disposition: Discharge to home or self care 05/28/2024 Orders Only [facility]ics and [facility] Medicine [address] [place] [address] Bhanu Maddox MD Left knee pain, unspecified chronicity (Primary Dx) 05/28/2024 9:55 AM [employer] - 05/28/2024 11:59 PM [employer] Hospital Encounter [facility] [address] [place] [address] Discharge Disposition: Discharge to home or self care 05/28/2024 9:54 AM [employer] - 05/28/2024 11:59 PM [employer] Hospital Encounter [facility] ([facility]) Critical access hospital[address] [place] [address] Discharge Disposition: Discharge to home or self care 05/28/2024 9:53 AM [employer] - 05/28/2024 11:59 PM [employer] Hospital Encounter [facility] ([facility]) [address] [place] [address] Discharge Disposition: Discharge to home or self care 05/28/2024 9:52 AM [employer] - 05/28/2024 11:59 PM [employer] Hospital Encounter [facility] ([facility]) [address] [place] [address] Discharge Disposition: Discharge to home or self care 05/28/2024 9:51 AM [employer] - 05/28/2024 11:59 PM [employer] Hospital Encounter [facility] ([facility]) [address] [place] [address] Discharge Disposition: Discharge to home or self care 05/23/2024 7:39 AM [employer] - 05/23/2024 11:59 PM [employer] Hospital Encounter [facility] Orthopedics and Sports Medicine [address] [place] [address] Discharge Disposition: Discharge to home or self care 05/23/2024 7:39 AM [employer] - 05/23/2024 11:59 PM [employer] Hospital Encounter [facility] Orthopedics [facility] Sports Medicine [address] [place] [address] [address] [place] [address] Discharge Disposition: Discharge to home or self care 05/23/2024 8:30 AM [employer] Office Visit [facility] Orthopedics [facility] Sports Medicine [address] [place] [address] [address] [place] [address] Bhanu Maddox MD Primary osteoarthritis of left knee (Primary Dx); Left knee pain, unspecified chronicity; Pes anserinus bursitis of left knee 05/16/2024 Orders Only [facility] Orth[facility]edic [facility] [address] [facility] 6th [place] [address] [place] [address] Jori Moreno MD Spinal stenosis of lumbar region with neurogenic claudication (Primary Dx); Lumbar spondylosis 05/13/2024 Orders Only [facility] Primary Care at [address] [place] [address] Bhanu Borja MD Age-related osteoporosis without current pathological fracture (Primary Dx); Coronary artery disease involving [place] coronary artery of [place] heart without angina pectoris 05/08/2024 9:51 AM [employer] - 05/08/2024 11:59 PM [employer] Hospital Encounter [facility]) [address] [place] [address] Spinal stenosis of lumbar region, unspecified whether neurogenic claudication present Discharge Disposition: Discharge to home or self care 05/08/2024 11:00 AM [employer] Office Visit [facility] Orthopaedic Surgery [address] [facility] 6th [address] [place] [address] Jori Moreno MD Spinal stenosis of lumbar region, unspecified whether neurogenic claudication present (Primary Dx); Lumbar radiculopathy from Last 3 Months Allergies Active Allergy Reactions Criticality Noted Date Comments Alfuzosin Hypotension High 08/16/2017 Severe hypotension Hydrocodone Other (See comments) Low 06/06/2019 Hallucinations and felt like I was out of my head . Lisinopril Cough,Other (See comments) Low 06/06/2019 Reaction: Cough, Reaction: Cough, Reaction: Cough, Oxycodone Other (See comments) Medium 03/07/2012 20 years ago had hallucinations but took some after recent back surgery and had no issue. Medications BD Ultra-Fine Micro Pen Needle 32 gauge x 1/4 needle USE ONCE DAILY TO INJECT VICTOZA 100 each 2 021 Active fluorouraciL (EFUDEX) 5 % cream 022 Active blood glucose diagnostic (OneTouch Verio test strips) strip USE TO TEST BLOOD BY FINGER STICK ONCE DAILY 100 strip 1 024 Active losartan (COZAAR) 50 mg tablet Take 1 tablet (50 mg total) by mouth daily 90 tablet 3 024 2024 Active semaglutide (Ozempic) 0.25 mg or 0.5 mg (2 mg/3 mL) pen injector injection INJECT 0.5 MG UNDER THE SKIN ONCE A WEEK 9 mL 3 024 Active latanoprost (XALATAN) 0.005 % ophthalmic solutionIndicati ons:OAG (open angle glaucoma) suspect, high risk, left,Primary open angle glaucoma (POAG) of right eye, moderate stage Administer 1 drop into both eyes every morning 7.5 mL 3 024 Active HYDROcodone-acet aminophen (NORCO) 5-325 mg per tabletIndication s:Pain Take 1 tablet by mouth every 6 (six) hours as needed for pain 60 tablet 025 2025 Active amLODIPine (NORVASC) 5 mg tablet Take 1 tablet (5 mg total) by mouth daily Active insulin degludec (TRESIBA) 100 unit/mL (3 mL) pen for injection Inject 0.18 mL (18 Units total) under the skin daily before breakfast Active albuterol HFA (ProAir HFA) 90 mcg/actuation inhaler Inhale 2 puffs every 4 (four) hours as needed for wheezing or shortness of breath 8.5 g 023 2024 Discontinued(T herapy completed) naloxone (NARCAN) 4 mg/actuation spray,non-aeroso l Administer 1 spray into affected nostril(s) as needed for opioid reversal or respiratory depression Call 911. Administer a single spray in one nostril. Repeat every 3 minutes as needed if no or minimal response. 1 each 023 2024 Discontinued(T herapy completed) cyclobenzaprine (FLEXERIL) 5 mg tabletIndication s:Intervertebral disc disorder with radiculopathy of lumbar region Take 1 tablet (5 mg total) by mouth 3 (three) times a day as needed for muscle spasms 90 tablet 023 2024 Discontinued(T herapy completed) cyclobenzaprine (FLEXERIL) 5 mg tabletIndication s:Radiculopathy, unspecified spinal region Take 1 tablet (5 mg total) by mouth 3 (three) times a day as needed for muscle spasms 90 tablet 5 024 2024 Discontinued(T herapy completed) insulin degludec (TRESIBA) 100 unit/mL (3 mL) pen for injection Inject 0.16 mL (16 Units total) under the skin daily 15 mL 025 2024 Discontinued promethazine-cod eine (PHENERGAN with CODEINE) 1.25-2 mg/mL syrupIndications :Acute cough Take 5 mL by mouth every 6 (six) hours as needed for cough 118 mL 025 2024 Discontinued(T herapy completed) guaiFENesin-code ine (GUAITUSS AC) liquid 100-10 mg/5 mL Take 5-10 mL by mouth every 4 (four) hours as needed for cough 240 mL 1 025 2024 Discontinued(T herapy completed) insulin degludec (TRESIBA) 100 unit/mL (3 mL) pen for injection INJECT 0.16 ML (16 UNITS TOTAL) UNDER THE SKIN DAILY 15 mL 11 025 2024 Discontinued(D uplicate order) Active Problems Problem Noted Date Diagnosed Date Acute medial meniscus tear of left knee 07/23/19 25 Flat back syndrome, postprocedural 06/10/2024 Encounter for screening colonoscopy 02/12/2024 Acute cough 04/11/2023 Assessment & Plan (04/11/2023 11:13 AM [employer]): Acute on chronic problem- this is a recurring problem Ordered covid, flu a/b POC- negative results Due to length of illness we will treat with antibiotic, please complete the whole course of antibiotics-no leftovers Ordered Augmentin 875-125 mg Side effects discussed Please take probiotics for at least a month to help keep your gut health in check as the antibiotic kills the good bacteria along with the bad. This will help decrease the GI side effects you have from the antibiotic Tessalon perles during the day for cough as needed-Rx sent this visit Take meds as directed Increase fluids, rest and handwashing Hot water/hot tea with honey 1 teaspoon of honey every 4 hours No sharing cups or utensils May use vicks vaporub on chest and feet as needed to help with cough Good hand washing routine Tylenol/Iibuprofen as needed for fever, body aches etc Use a humidifier, recommended steam inhalation, hot showers Saline/Salt water gargles, saline nose drops as needed Watch for worsening symptoms, i.e.increasing fever, productive cough, headache, sore throat, excessive tiredness, rash etc No sharing cups or utensils Return to office as needed or if symptoms worsen/change or don't improve in 7- 10 days Pt verbalizes understanding and all questions have been answered Plan CXR if no improvement Class 1 obesity with body ma ss index (BMI) of 31.0 to 31.9 in adult 07/25/2022 Assessment & Plan (06/13/2024 12:40 PM CDT): Wt Readings from Last 3 Encounters: 06/13/24 107.4 kg (236 lb 11.2 oz) 05/23/24 110.2 kg (243 lb) 05/08/24 112.8 kg (248 lb 9.6 oz) Body mass index is 31.24 kg/m . -Stable, not at goal of <30 bmi -Discussed recommendations for exercise at least 30 minutes moderate to vigorous exercise as tolerated most days of the week. (minimum 150 minutes weekly) -Discussed importance of well-balanced diet Diabetic neuropathy, type II diabetes mellitus 1 History of 2019 novel coronavirus disease (COVID -19) 01/06/2022 Lumbar spondylosis 12/09/2021 Bilateral carpal tunnel syndrome 10/22/2021 Guyon syndrome, unspecified laterality 2 Cubital tunnel syndrome, bilateral 10/22/2021 Conductive hearing loss, bilateral 08/02/2021 Assessment & Plan (04/11/2023 11:07 AM [employer]): Chronic problem- stable Encouraged to follow up with ENT for routine check Continue to monitor Assessment & Plan (08/02/2021 12:50 PM CDT): Consider Astelin 2 sprays into each nostril while looking down over the sink, do not sniff in or blow nose after use for at least 30 minutes Try Cetirizine 10 mg daily (zyrtec) Hearing test - Dr. Nolan Consider ear tube placement based on Hearing test results Chronic otitis media of both ears with effusion 06/14/2021 Assessment & Plan (04/11/2023 11:09 AM [employer]): Chronic problem- poorly controlled, this is a recurring problem Ordered Augmentin 875-125 mg- take 1 tablet bid x 10 days Follow up with pcp as scheduled-sooner prn if no improvement Encouraged to avoid excess water, shampoo products in ears Avoid cleaning ears with Q-tips or other objects Recommend over the counter Vapocool lozenges Tylenol/ibuprofen as needed Increase fluids, rest and handwashing Warm saltwater gargles Hot water/hot tea with honey 1 teaspoon of honey every 4 hours Saline rinses to nose at least twice daily No sharing cups or utensils Cool mist humidifier May use vicks vaporub on chest and feet as needed to help with cough Replace toothbrush in 5 days Wash pillow and bed linens Take zyrtec/claritin/daisy in the am Saline rinse in the am Flonase 2 sprays each nostril, aim away from cartilage, spray once-baby sniff, switch to the other nostril and repeat. Saline rinse about 15 min before bed Recommend staying on the above treatment from the beginning of June to end of August Come off of meds if possible during the summer Then restart on meds mid to late November until Thanksgiving Come off of meds if possible during the winter Assessment & Plan (08/02/2021 12:10 PM CDT): Consider Astelin 2 sprays into each nostril while looking down over the sink, do not sniff in or blow nose after use for at least 30 minutes Try Cetirizine 10 mg daily (zyrtec) Hearing test - Dr. Nolan Assessment & Plan (06/14/2021 4:32 PM CDT): Astelin (azelastine) 2 sprays into each nostril while looking down over the sink, do not sniff in or blow nose after use for at least 30 minutes twice daily Cetirizine 10 mg daily (Zyrtec) Cefdinir twice daily with a meal Follow up in 6 weeks, consider ear tube placement if no improvement in Hearing Non-seasonal allergic rhinitis due to pollen Assessment & Plan (04/11/2023 11:06 AM [employer]): Chronic problem-poorly controlled with current regimen Encouraged to schedule appointment with Dr. Child Ordered augmentin 875-125 mg- take 1 tablet bid x 10 days Recommend over the counter Vapocool lozenges Tylenol/ibuprofen as needed Increase fluids, rest and handwashing Warm saltwater gargles Hot water/hot tea with honey 1 teaspoon of honey every 4 hours Saline rinses to nose at least twice daily No sharing cups or utensils Cool mist humidifier May use vicks vaporub on chest and feet as needed to help with cough Replace toothbrush in 5 days Wash pillow and bed linens Take zyrtec/claritin/daisy in the am Saline rinse in the am Flonase 2 sprays each nostril, aim away from cartilage, spray once-baby sniff, switch to the other nostril and repeat. Saline rinse about 15 min before bed Recommend staying on the above treatment from the beginning of June to end of August Come off of meds if possible during the summer Then restart on meds mid to late November until Thanksgiving Come off of meds if possible during the winter Assessment & Plan (06/14/2021 9:01 PM CDT): Astelin (azelastine) 2 sprays into each nostril while looking down over the sink, do not sniff in or blow nose after use for at least 30 minutes twice daily Cetirizine 10 mg daily (Zyrtec) Cefdinir twice daily with a meal Follow up in 6 weeks, consider ear tube placement if no improvement in Hearing Benign prostatic hyperplasia with nocturia 05/17 Intractable vomiting 04/26/2021 Urine frequency 12/30/2020 Iron deficiency anemia 12/30/2020 Facet joint disease of lumbosacral region 2020 History of rheumatic fever 10/11/2020 Longstanding persistent atrial fibrillation 10/01 Status post lumbar spinal fusion 08/11/2020 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 Tracy as scheduled Assessment & Plan (07/17/2022 11:18 AM CDT): F/U with Dr. Tracy as scheduled Assessment & Plan (07/05/2021 7:12 PM CDT): F/U with Dr. Tracy as scheduled Assessment & Plan (05/21/2020 10:19 AM [employer]): Mild left eye (OS)>OD with excellent visual acuity (VA) left eye (OS), good visual acuity (VA) right eye (OD) with paracentral mild cystoid macular edema (CME) , status post (s/p) taper off pred forte /Acular last month. Given mild discussed R/B/A of observation vs anti-VEGF and will plan to defer pending progression. Last A1c 8.7 (02/2020 ) Follow up 2 months Improved diabetes mellitus (DM) control discussed. CME (cystoid macular edema), right 04/06/2020 Assessment & Plan (04/06/2020 7:56 PM [employer]): Resolved by OCT eval Taper off pred forte (PF) and DC ketorolac Vision had refracted to 20/20, but now 20/30 Hard to intubate 01/22/2020 Pseudophakia of right eye 10/21/2019 Assessment & Plan (07/17/2022 11:17 AM CDT): Vision stable- Assessment & Plan (07/06/2020 10:09 PM CDT): Vision stable, limited by retinal disease Assessment & Plan (10/21/2019 1:46 PM CDT): Iritis right eye (OD) Lens centered and stable, pred forte (PF) Q 2-3 hrs Return with increased pain, redness or decreased vision Instructed pt to shake the drops very well Spinal stenosis of lumbar re gion with neurogenic claudication 06/28/2019 Primary open angle glaucoma (POAG) of right eye, moderate stage 06/11/2019 Assessment & Plan (02/20/2024 12:16 PM [employer]): intraocular pressure (IOP) remains acceptable in low-mid teens on latanoprost Guzman visual field (HVF) remains essentially stable c/w 2019 CPM F/U 6 months with OCT RNFL/GCL Assessment & Plan (07/24/2023 10:52 PM CDT): intraocular pressure (IOP) remains acceptable in low-mid teens on latanoprost Stable OCT, ? Visual field (VF) progression right eye (OD) CPM F/U 6 months with repeat Guzman visual field (HVF) right eye (OD) only Assessment & Plan (07/17/2022 11:16 AM CDT): intraocular pressure (IOP) remains acceptable in low-mid teens on latanoprost Stable Guzman visual field (HVF), OCT with artifact CPM F/U annually with Guzman visual field (HVF) 24-2 and OCT F/U Dr. Mckinley in interim with intraocular pressure (IOP) check Assessment & Plan (07/05/2021 7:11 PM CDT): intraocular pressure (IOP) remains acceptable in low-mid teens on latanoprost Stable OCT CPM F/U annually with Guzman visual field (HVF) 24-[address] Tracy in interim with intraocular pressure (IOP) check Assessment & Plan (11/03/2020 12:09 PM CDT): intraocular pressure (IOP) acceptable status post (s/p) KDB on single class CPM F/U 8 months with Guzman visual field (HVF)/OCT F/U with Dr. Tracy as scheduled Assessment & Plan (07/06/2020 10:08 PM CDT): 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 Difficult to identify optic nerve (ON) abnormality by exam due to small discs, but evident on OCT. intraocular pressure (IOP) controlled with avg/thick CCT on single class with moderate visual field (VF) loss (IA) intraocular pressure (IOP) improved/acceptable status post (s/p) cataract extraction (CE)/KDB OD Guzman visual field (HVF) and OCT stable today CPM F/U 4 months Assessment & Plan (04/06/2020 7:54 PM [employer]): 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 Difficult to identify optic nerve (ON) abnormality by exam due to small discs, but evident on OCT. intraocular pressure (IOP) controlled with avg/thick CCT on single class with moderate visual field (VF) loss (IA) intraocular pressure (IOP) improved status post (s/p) cataract extraction (CE)/KDB OD CPM F/U 3 months with Ugzman visual field (HVF)/OCT Assessment & Plan (10/07/2019 9:09 PM CDT): 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 Difficult to identify optic nerve (ON) abnormality by exam due to small discs, but evident on OCT. intraocular pressure (IOP) controlled with avg/thick CCT on single class with moderate visual field (VF) loss (IA) Tmax 20 Recommend cataract extraction (CE) with KDB right eye (OD) Discussed R/B/A and he agrees to proceed Target plano Assessment & Plan (06/11/2019 9:20 PM CDT): 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 Difficult to identify optic nerve (ON) abnormality by exam due to small discs, but evident on OCT. intraocular pressure (IOP) controlled with avg/thick CCT on single class Tmax 20 Recommend cataract extraction (CE) with KDB right eye (OD) Discussed R/B/A OAG (open angle glaucoma) suspect, high risk, le ft 06/11/2019 Assessment & Plan (02/20/2024 12:16 PM [employer]): intraocular pressure (IOP) low to mid teens CPM Assessment & Plan (07/24/2023 10:52 PM CDT): OCT remains with nl nerve fiber layer (NFL), full HVF intraocular pressure (IOP) mid teens CPM Assessment & Plan (07/17/2022 11:16 AM CDT): OCT remains with nl nerve fiber layer (NFL), full HVF intraocular pressure (IOP) mid teens CPM Assessment & Plan (07/05/2021 7:11 PM CDT): OCT remains with nl nerve fiber layer (NFL) intraocular pressure (IOP) mid teens CPM Assessment & Plan (11/03/2020 12:09 PM CDT): intraocular pressure (IOP) acceptable Guzman visual field (HVF) did not confirm nasal loss as noted CPM Assessment & Plan (07/06/2020 10:09 PM CDT): ? Early visual field (VF) loss More likely rim defect CPM F/U with repeat Guzman visual field (HVF) left eye (OS) in 4months OCT stable today Hypertensive retinopathy of both eyes, grade 1 0 06/11/2019 Assessment & Plan (10/07/2019 9:11 PM CDT): Arteriolar attenuation and few dot heme ? diabetes mellitus (DM) vs HTN No macular edema Assessment & Plan (06/11/2019 9:17 PM CDT): Arteriolar attenuation and few dot heme ? diabetes mellitus (DM) vs HTN Permanent atrial fibrillation (CMS/HCC) 01/24/20 18 Assessment & Plan (09/03/2019 1:48 PM CDT): Asymptomatic with heart rate controlled in the 70s w/o beta-natalie or antiarrhythmics. Periodically takes aspirin but not consistently. Risk associated with atrial fib w/o daily antiplatelet/anticoagulant discussed. Will Cnt. To monitor. Assessment & Plan (01/23/2018 12:37 PM CDT): Chronic AFib which is rate with with stable in office today. Long discussion in regard to importance of anticoagulation for cough prevention of patient to come to a decision to not move forward with Eliquis treatment. He was in agreement upon starting back on aspirin therapy however. Follow-up in regard to atrial fib in 3 months as scheduled Controlled type 2 diabetes adeline grigsby without complication, without long-term current use of insulin 08/17/2013 Overview (07/09/2016): DMII WO CMP NT ST UNCNTR Assessment & Plan (12/08/2022 6:51 AM CDT): The patient was counseled on a heart-healthy, diabetic-friendly diet, as well as life-style modification. Education provided on the diagnosis and risks of the disease. We will continue to monitor routine labs. Additionally, the patient was counseled on routine diabetic eye exams, foot exams, and other preventive care. Assessment & Plan (05/04/2021 10:41 AM [employer]): The patient was counseled on a heart-healthy, diabetic-friendly diet, as well as life-style modification. Education provided on the diagnosis and risks of the disease. We will continue to monitor routine labs. Additionally, He was counseled on routine diabetic eye exams, foot exams, and other preventive care. Assessment & Plan (04/06/2020 7:58 PM [employer]OM[employer]): Intraretinal fluid left eye (OS) cystoid macular edema (CME) resolved right eye (OD) Refer to Retina for baseline eval Last QszF5L=0.2 per pt, now on insulin therapy Assessment & Plan (02/05/2020 8:20 AM AUTOMO[employer]LE [employer] MOLDER): The patient was counseled on a heart-healthy, diabetic-friendly diet, as well as life-style modification. Education provided on the diagnosis and risks of the disease. We will continue to monitor routine labs. Additionally, He was counseled on routine diabetic eye exams, foot exams, and other preventive care. Assessment & Plan (10/07/2019 9:12 PM CDT): Mild non-proliferative diabetic retinopathy (NPDR) Lab Results Component Value Date HGBA1C 8.6 (H) 09/11/2019 Assessment & Plan (09/03/2019 1:45 PM CDT): Uncontrolled recent hyperglycemia secondary to steroid injection as last hemoglobin A1c 9.3%. Upcoming labs next week for further evaluation and need for changes in management. Cnt. To monitor weight given weight loss secondary to use of Ozempic. Persistent hyperglycemia encouraged to report office. Cnt. Victoza, metformin, consistent carb diet as prior prescribed. Assessment & Plan (06/11/2019 9:18 PM CDT): Lab Results Component Value Date HGBA1C 9.3 (H) 05/27/2019 Poor control Mild retinopathy left eye (OS) Assessment & Plan (01/23/2018 12:34 PM CDT): A1c increased from 6.9-7.7% over the course of 3 months. I did encourage patient of our goals of 7.5% and he noted to desire to continue with current dosing of Victoza as well as glucose/insulin strongly focus on his improved consistent carb diet in order to improve his fasting glucose office. These averaging 140-150 this time and with will touch base with us if he persistently exceeds over the 140 gildardo prior to next office visit labs. Assessment & Plan (12/19/2017 11:00 AM CDT): The patient was counseled on a heart-healthy, diabetic-friendly diet, as well as life-style modification. Education provided on the diagnosis and risks of the disease. We will continue to monitor routine labs. Additionally, the patient was counseled on routine diabetic eye exams, foot exams, and other preventive care. Hypertension associated with diabetes 08/17/2013 Overview (07/09/2016): BENIGN HYPERTENSION Assessment & Plan (04/11/2023 11:13 AM [employer]OM[employer]): Chronic problem-normally well controlled Continue amlodipine 5 mg daily BP this visit 159/100, rechecked after rest 132/80 Continue to monitor Recommend DASH diet, heart-healthy lifestyle, exercise. Discussed the risks of hypertension. Assessment & Plan (12/08/2022 6:52 AM CDT): Recommend DASH diet, heart healthy lifestyle, exercise. Discussed the risks of hypertension. Assessment & Plan (12/18/2020 8:36 AM CDT): Recommend DASH diet, heart healthy lifestyle, exercise. Discussed the risks of hypertension. Assessment & Plan (02/05/2020 8:20 AM AUTOM[employer]): Recommend DASH diet, heart-healthy lifestyle, exercise. Discussed the risks of hypertension. Assessment & Plan (09/03/2019 1:48 PM CDT): Uncontrolled, symptomatic at home. BP improved with recheck in office today, but quite high at home with little improvement after increasing losartan. No signs of fluid retention and declined desire for diuretic, recommending amlodipine q.h.s. starting at 5 mg to increase to 10 w/o any notable dizziness or leg edema. Recent labs completed in May, EKG in January all reviewed in NL. TSH, CMP to repeat next week after increasing losartan 2 weeks prior with further follow-up. Dash diet, mild to moderate exercise as tolerated. RTC in clinic as scheduled in 2 weeks or sooner as needed. Assessment & Plan (01/23/2018 12:32 PM CDT): Long discussion in office today with patient regarding his uncontrolled blood pressure, as he does not wish to increase of his losartan at this time. He stated he will keep close monitor of his BP readings at home along with implementing DASH diet and mod. Exercise as he previously had. He is agreement of letting us know if his readings are steadily increasing over the next few months until next visit. He was made aware of risk associated with uncontrolled HTN- I did encourage him to start back on his ASA 81mg for both atrial fib and HTN Assessment & Plan (12/19/2017 11:00 AM CDT): Recommend DASH diet, heart healthy lifestyle, exercise. Discussed the risks of hypertension. Arthralgia of shoulder 05/13/2011 Metabolic acidosis Resolved Problems Problem Noted Date Diagnosed Date Resolved Date Encounter for screening colonoscopy 02/12/2024 06/13/2024 Pain in right testicle 05/17/202106/13 Epididymitis, right 04/27/2021 06/14/19 Acute cystitis without hematuria 10/11/2020 05/04/2021 DDD (degenerative disc disease), lumbosacral 12/30/2020 Normocytic anemia 10/11/2020 12/30/2020 Testicular pain, left 09/08/20202020 Testicular swelling, left 09/08/2020 Neurogenic claudication due to lumbar spinal stenosis 08/11/2020 12/30/2020 Recurrent UTI 06/24/2020 12/30/2020 Postop check 10/16/2019 12/30/2020 Assessment & Plan (12/27/2019 11:57 PM CDT): POM2 status post (s/p) cataract extraction (CE)/IOL right eye (OD) cystoid macular edema (CME) resolving well with pred forte (PF) and NSAID Given MRx Taper off pred forte (PF), continue Ketorolac Bid both eyes (OU) F/U 2-3 months/prn (to have spinal surgery next month) with Macula OCT Assessment & Plan (10/25/2019 2:49 PM CDT): POW1 status post (s/p) cataract extraction (CE)/IOL/KDB right eye (OD) Moderate inflammatory rxn at POD4- resolved, no fibrin, subjective resolution Taper pred forte (PF) to qid--tid--bid F/U 1 month/prn intraocular pressure (IOP) acceptable on Latanoprost, CPM for now Discussed with pt- contact with rebound Assessment & Plan (10/16/2019 10:20 AM CDT): Post-operative day #1 s/p CE-IOL + KDB right eye (OD): Doing well. Expected amount of inflammation. Pressure acceptable Med Plan Prednisolone QID right eye (OD) Moxifloxacin QID right eye (OD) Continue latanoprost both eyes (OU) Reviewed signs/symptoms endophthalmitis, RT/RD; patient to call immediately if any worsening vision, pain, redness, flashes/floaters/curtains No lifting/bending/swimming. Clark shield while sleeping, protective eyewear during day Written instructions for drop schedule provided F/U 1wk Combined forms of age-relate d cataract of right eye 09/24/2019 04/06/2020 Overview (09/24/2019): Added automatically from request for surgery [id number] Assessment & Plan (10/07/2019 9:09 PM CDT): Visually significant- posterior subcapsular cataract (PSC) component Primary open angle glaucoma of right eye, moderate stage 09/24/2019 07/06/2020 Overview (09/24/2019): Added automatically from request for surgery [id number] Nuclear sclerotic cataract of right eye 09/24/2019 04/06/2020 Overview (10/08/2019): Added automatically from request for surgery [id number] Lumbosacral spondylosis without myelopathy 08/14/2019 12/30/2020 Chronic bilateral low back p ain with bilateral sciatica 06/28/2019 12/30/2020 Postlaminectomy syndrome, lumbar 06/28/2019 12/30/2020 Radiculopathy, lumbosacral region 06/28/2019 12/30/2020 Facial cellulitis 06/11/2019 06/13/2024 Assessment & Plan (06/11/2019 10:14 AM CDT): Continue Clindamycin until completely done Definitely see your Dentist next week Warm compresses as often as possible Peridex mouth rinse and spits after meals and before mealtime, soak cotton ball and place in the area for 2 minutes four times daily Soft diet, low acid diet If face begins to swell up again or vision changes, please go to an Emergency department Dental abscess 06/11/2019 06/13/2024 Assessment & Plan (06/11/2019 10:15 AM CDT): Continue Clindamycin until completely done Definitely see your Dentist next week Warm compresses as often as possible Peridex mouth rinse and spits after meals and before mealtime, soak cotton ball and place in the area for 2 minutes four times daily Soft diet, low acid diet If face begins to swell up again or vision changes, please go to an Emergency department Closed fracture of left distal radius 01/19/2019 06/12/2019 Sprain of shoulder, left 01/19/201902/2020 Fall, accidental, initial encounter 01/19/2019 06/12/2019 BMI 29.0-29.9,adult 01/23/2018 06/09/19 19 Assessment & Plan (01/23/2018 12:35 PM CDT): Recommended patient to continue to increase heart healthy diet with adequate fruits, vegetables, and plenty of water along with mild-moderate daily exercise as tolerated. 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 11/24/2017 06/12/2019 Aftercare following right sh oulder joint replacement surgery 08/30/2017 06/08/2018 BMI 31.0-31.9,adult 12/02/2016 06/09/19 19 Obstructive sleep apnea syndrome 08/17/2013 06/11/2019 Overview (07/09/2016): OBSTRUCTIVE SLEEP APNEA Elevated prostate specific antigen (PSA) 05/09/2012 06/08/2018 Overview (07/09/2016): PSA elevation Tendinitis of shoulder 05/09/201206/08 Overview (07/09/2016): Rotator cuff tendonitis Acute renal failure 06/14/19 25 Gastritis 06/13/2024 Immunizations Immunization Administration Dates Next Due Influenza, Unspecified 02/02/2024(Deferr ed: Patient Refused),04/11/2023(Deferred: Patient Refused),01/01/2021(Deferred: Patient Refused),01/02/2020(Deferred: Patient Refused),01/01/2019(Deferred: Patient Refused) Pneumococcal Conjugate PCV 13 07/25/2022(Deferre d: Patient Refused) Pneumococcal Conjugate, Unspecified 07/25/2022(D eferred: Patient Refused) Social History Tobacco Use Types Packs/Day Years Used Date Smoking Tobacco: Never Passive Smoke Exposure: Past Smokeless Tobacco: Never Tobacco Cessation:Counseling Given: Not Answered Alcohol Use Standard Drinks/Week Comments Yes 5 (1 standard drink = 0.6 oz pur e alcohol) Humiliation, Afraid, Rape, and Kick questionnair e Answer Date Recorded Within the last year, have y ou been afraid of your partner or ex-partner? No 04/30/2021 Within the last year, have y ou been humiliated or emotionally abused in other ways by your partner or ex-partner? No Within the last year, have y ou been kicked, hit, slapped, or otherwise physically hurt by your partner or ex-partner? No 04/30/2021 Within the last year, have y ou been raped or forced to have any kind of sexual activity by your partner or ex-partner? No 04/30/2021 Social Connection and Isolat ion Panel [NHANES] Answer Date Recorded In a typical week, how many times do you talk on the phone with family, friends, or neighbors? More than three times a week 04/30/2021 How often do you get togethe r with friends or relatives? Three times a week 04/30/2021 How often do you attend [facility] or hindu services? More than 4 times per year 04/30/2021 Active Member of Clubs or Organizations Not on f ile 04/30/2021 Attends Club or Organization Meetings Not on adriane e 04/30/2021 Are you , , di vorced, , never , or living with a partner? 04/30/2021 AUDIT-C Answer Date Recorded Q1: How often do you have a drink containing alc ohol? 2-3 times a week 07/24/2024 Q2: How many drinks containi ng alcohol do you have on a typical day when you are drinking? 1 or 2 07/24/2024 Q3: How often do you have si x or more drinks on one occasion? Never 07/24/2024 Overall Financial Resource Strain (CARDIA) Answe r Date Recorded How hard is it for you to pa y for the very basics like food, housing, medical care, and heating? Not hard at all 04/30/2021 PHQ-2 Answer Date Recorded PHQ-2 Total Score (If total score is 3 or more points, staff should administer the PHQ-9) 0 06/13/2024 Hunger Vital Sign Answer Date Recorded Within the past 12 months, y ou worried that your food would run out before you got the money to buy more. Never true 04/30/19 22 Within the past 12 months, t he food you bought just didn't last and you didn't have money to get more. Never true 04/30/2021 PRAPARE - Transportation Answer Date Re corded In the past 12 months, has l ack of transportation kept you from medical appointments or from getting medications? No 04/04 In the past 12 months, has l ack of transportation kept you from meetings, work, or from getting things needed for daily living? No 04/30/2021 Housing Stability Vital Sign Answer Michael e Recorded In the last 12 months, was t here a time when you were not able to pay the mortgage or rent on time? No 04/30/2021 Number of Places Lived in the Last Year Not on f ile 04/30/2021 In the last 12 months, was t here a time when you did not have a steady place to sleep or slept in a care home (including now)? No 04/30/2021 Personal Safety Answer Date Recorded Have you ever been in or are you currently in a harmful physical or emotional relationship or is someone making you feel afraid or unsafe? 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 file Not on file Not on file Last Filed Vital Signs Vital Sign Reading Time Taken Comments Blood Pressure 155/89 07/16/2024 8:24 AM CDT Pulse 89 07/16/2024 8:24 AM CDT Temperature 36.3 C (97.4 F) 06/13/2024 10:59 AM CDT Respiratory Rate 16 06/13/2024 10:5 9 AM CDT Oxygen Saturation 96% 06/13/2024 10: 59 AM CDT Inhaled Oxygen Concentration - - Weight 111.6 kg (246 lb 0.5 oz) 04/15/2 025 11:01 AM CDT Height 185.4 cm (6' 0.99 ) 07/16/2024 1 1:01 AM CDT Body Mass Index 32.47 07/16/2024 11:01 AM CDT Plan of Treatment Upcoming Encounters Date Type Department Care Team (Latest Contact Info) Description 08/02/2024 9:40 AM CDT Hospital Encounter [facility] Operating Room [address] [place] [address] Bhanu Maddox MD [address] [facility] [place] [address] 08/02/2024 9:40 AM CDT - 08/02/2024 11:10 AM CDT Surgery [facility] Operating Room [address] [place] [address] Bhanu Maddox MD [address] [facility] [address] [place] [address] Left Knee Arthroscopy with Medial Meniscectomy- [employer], Cooling Unit-[facility], 1 Liter Beta Rinse 09/03/2024 12:00 PM CDT Hospital Encounter [address] [address] Dorian Rodrigues MD [address] [facility] [place] [address] 09/03/2024 12:00 PM CDT - 09/03/2024 12:30 PM CDT Surgery [address] [address] Dorian Rodrigues MD [address] [place] [address] [address] [place] [address] COLONOSCOPY Scheduled Procedures Name Priority Associated Diagnoses Date/Ti me ARTHROSCOPY KNEE Acute medial meniscus tear of left knee, initial encounter 08/02/2024 9:40 AM CDT COLONOSCOPY Encounter for screening colonoscopy 09/03/2024 12:00 PM CDT Medical Devices Implanted Type Area Learning Technologist Device Identifier Shelf Expiration Date Model / Serial / Lot Plate Glenoid Equinoxe Standard Reverse - [id number] - [id number] Implanted:Qty: 1 on 08/29/2017 by Karthik Herring MD at [facility] Other - see comments Right: Shoulder Exactech 06/10/2026 320-15-0 1 / [id number] / Screw Bone Equinoxe Shoulder Glenosphere Lock Reverse - [id number] - [id number] Implanted:Qty: 1 on 08/29/2017 by Karthik Herring MD at [facility] Other - see comments Right: Shoulder [employer]ech 320-15-0 5 / [id number] / Cmpnt Glenoid 42mm Glenosphere Equinoxe Shldr - [id number] - [id number] Implanted:Qty: 1 on 08/29/2017 by Karthik Herring MD at [facility] Other - see comments Right: Shoulder [employer]ech 05/16/2027 320-01-4 2 / [id number] / Stem Humeral Equinoxe Od15 Mm Shoulder Press Fit - [id number] - [id number] Implanted:Qty: 1 on 08/29/2017 by Karthik Herring MD at [facility] Other - see comments Right: Shoulder [employer]ech 10/28/2026 300-01-1 5 / [id number] / Screw Bone Equinoxe L26 Mm Od4.5 Mm Shoulder Kit Compression Lock Cap Reverse [place] - [id number] - [id number] Implanted:Qty: 1 on 08/29/2017 by Karthik Herring MD at [facility] Screw Right: Shoulder [employer] 01/31/2022 320-20-2 6 / [id number] / Screw Bone Equinoxe L22 Mm Od4.5 Mm Shoulder Kit Compression Lock Cap Reverse Black - [id number] - [id number] Implanted:Qty: 1 on 08/29/2017 by Karthik Herring MD at [facility] Screw Right: Shoulder [employer]ech 02/08/2022 320-20-2 2 / [id number] / Exactech 320-20-00 Reverse Torque Define Shoulder Kit Screw - [id number] - [id number] Implanted:Qty: 1 on 11/25/2017 by Karthik Herring MD at [facility] Right: Shoulder [employer]ech 10/31/2022 320-20-0 0 / [id number] / Exactech 320-10-00 Equinoxe Reverse Shoulder +0mm Tray Humeral Adapter - [id number] - [id number] Implanted:Qty: 1 on 11/25/2017 by Karthik Herring MD at [facility] Right: Shoulder [employer]ech 10/24/2027 320-10-0 0 / [id number] / Exactech 320-42-13 Equinoxe 42mm Reverse Constrained Shoulder +2.5mm Liner Humeral - [id number] - [id number] Implanted:Qty: 1 on 11/25/2017 by Karthik Herring MD at [facility] Right: Shoulder Exactech 07/10/2021 320-42-1 3 / [id number] / [employer] Co-S2326 Acu-Loc 2.3mm 26mm Smooth Lock Cortical Peg Fixation Titanium - [id number] Implanted:Qty: 1 on 01/22/2019 by Karthik Herring MD at [facility] Left: Wrist [employer] CO-S2326 / / N/A Co-2328 28mm Peg Implanted:Qty: 2 on 01/22/2019 by Karthik Herring MD at [facility] Left: Wrist [employer] [id number] CO-2328 / / N/A Description:ITEM NUMBER IS C [id number] NOT FOUND IN [place] [employer] Co-S2324 Acu-Loc 2.3mm 24mm Smooth Lock Cortical Peg Fixation Titanium - [id number] Implanted:Qty: 1 on 01/22/2019 by Karthik Herring MD at [facility] Left: Wrist [employer] CO-S2324 / / N/A [employer] Co-S2322 Acu-Loc 2.3mm 22mm Smooth Lock Cortical Peg Fixation Titanium - [id number] Implanted:Qty: 2 on 01/22/2019 by Karthik Herring MD at [facility] Left: Wrist [employer] CO-S2322 / / N/A [employer] 30-0305 3mm 16mm Nonlock Hexalobe Head Screw Bone Nonsterile - [id number] Implanted:Qty: 1 on 01/22/2019 by Karthik Herring MD at [facility] Left: Wrist [employer] 30-0305 / / N/A [employer] 30-0282 3mm 16mm Lock Hexalobe Head Screw Bone Nonsterile - [id number] Implanted:Qty: 1 on 01/22/2019 by Karthik Herring MD at [facility] Left: Wrist [employer] 30-0282 / / N/A 70-0360 Wide Plate Implanted:Qty: 1 on 01/22/2019 by Karthik Herring MD at [facility] Left: Wrist [employer] C1713 70-0360 / / N/A [employer] [id number] Tecnis Tecnis Itec Protec Tri-Fix 6mm 13mm 1 Piece Anterior - [id number] - [id number] Implanted:Qty: 1 on 10/15/2019 by Anjana Rosa MD at [facility] Right: Eye [place] [employer] [id number] 01/20/2022 [id number] 15 / [id number] / Explanted Type Area Learning Technologist Device Identifier Shelf Expiration Date Model / Serial / Lot Kit Screw Shoulder Reverse Torque Define - [id number] - [id number] Implanted:Qty : 1 on 08/29/2017 by Karthik Herring MD at [facility] Explanted:Qty : 1 on 11/25/2017 at [facility] Other - see comments Right: Shoulder Exactech 06/29/2022 320-20-00 / [id number] / Tray Humeral Adapter Equinoxe +0 Mm Reverse Shoulder System - [id number] - [id number] Implanted:Qty : 1 on 08/29/2017 by Karthik Herring MD at [facility] Explanted:Qty : 1 on 11/25/2017 at [facility] Other - see comments Right: Shoulder Exactech 06/19/2027 320-10-00 / [id number] / 42mm Humeral Liner Implanted:Qty : 1 on 08/29/2017 by Karthik Herring MD at [facility] Explanted:Qty : 1 on 11/25/2017 at [facility] Other - see comments Ex[employer]ech 01/04/2022 320-42-03 / [id number] / Procedures Procedure Name Priority Date/Time Associated Diagnosis Comments MRI KNEE LEFT WO CONTRAST Schedule Routine, Read Routine (OP Routine) 06/03/2024 7:45 AM [employer]OM[employer]LE [employer] Left knee pain, unspecified chronicity NEURO MR OUTSIDE REFERENCE Routine 05/28/2024 9:55 AM [employer]LE [employer] NEURO MR OUTSIDE REFERENCE Routine 05/28/2024 9:54 AM [employer] NEURO MR OUTSIDE REFERENCE Routine 05/28/2024 9:53 AM [employer]LE [employer]DER NEURO MR OUTSIDE REFERENCE Routine 05/28/2024 9:52 AM [employer]LE [employer] XR TRANSFER OF OUTSIDE FILMS Routine 05/28/2024 9:51 AM [employer]OBILE [employer] XR PELVIS 1 OR 2 VIEWS Schedule Routine, Read Routine (OP Routine) 05/23/2024 8:34 AM [employer]LE [employer] Left knee pain, unspecified chronicity XR KNEE LEFT 4 OR MORE VIEWS Schedule Routine, Read Routine (OP Routine) 05/23/2024 8:31 AM [employer]OBILE [employer] Left knee pain, unspecified chronicity VA ARTHROCENTESIS ASPIR&/INJ MAJOR JT/BURSA W/O US Routine 05/23/2024 8:30 AM [employer]LE [employer] Primary osteoarthritis of left knee XR SCOLIOSIS 4 OR 5 VW Schedule Routine, Read Routine (OP Routine) 05/08/2024 10:10 AM [employer]OBILE [employer] Spinal stenosis of lumbar region, unspecified whether neurogenic claudication present EGFR Routine 01/24/2024 9:27 AM CDT Hypertension associated with diabetes (HCC) HEMOGLOBIN A1C Routine 01/24/2024 9:27 AM CDT Hypertension associated with diabetes (HCC) LIPID PANEL Routine 01/24/2024 9:27 AM CDT Hypertension associated with diabetes (HCC) PSA SCREEN Routine 01/24/2024 9:27 AM CDT Hypertension associated with diabetes (HCC) Elevated PSA ALBUMIN CREATININE RATIO, URINE Routine 07/25/2023 8:57 AM CDT Hypertension associated with diabetes (HCC) Controlled type 2 diabetes mellitus without complication, without long-term current use of insulin (HCC) DIABETIC EYE EXAM Routine 02/27/2023 DIABETES FOOT EXAM Routine 08/12/2019 COLONOSCOPY Routine 06/28/2013 from Last 3 Months or Most Recently Relevant to Health Maintenance Results * MRI Knee Left WO Contrast (06/03/2024 7:45 AM [employer]LE [employer]) Anatomical Region Laterality Modality Lower Extremities Left Magnetic Reson ance 06/03/2024 2:01 PM [employer] Narrative 06/03/2024 2:12 PM [employer] EXAM DESCRIPTION: MRI KNEE LEFT WO CONTRAST REASON FOR STUDY: Pain Pt c/o new onset of Left medial pain for approx 2 weeks. No known injury. Difficulty walking. Using a cane for stability. Pt stated he occasionally has muscle spasm in hamstring. TECHNIQUE: Multiplanar, multisequence MRI of the left knee was performed without contrast. COMPARISON: X-rays 05/23/2024 FINDINGS: Joint and Bursae: There is a large joint effusion. No Acosta's cyst. Bones: No acute fracture or suspicious marrow infiltration. No avascular necrosis. Cartilage: Motion degrades imaging. Patellofemoral: No significant chondrosis. Medial compartment: Minimal chondrosis. Lateral Compartment: Trivial chondrosis central weight-bearing lateral femoral condyle. Ligaments: The ACL, PCL, MCL and lateral collateral ligament complex are intact. Mild sprain of the MCL. Extensor Mechanism: The quadriceps and patellar tendons are intact. Tendons/Soft tissues: The popliteus tendon is intact. The musculature is intact without evidence of tear. The popliteal neurovascular bundle is normal. Medial Meniscus: There is a complex tear of the posterior horn of the medial meniscus with a prominent oblique undersurface component extending along the free margin. Tear extends into the midbody where there is more diffuse degenerative signal and likely degenerative tearing with a portion of the meniscus extending inferiorly along the medial margin of the tibial plateau. Lateral Meniscus: Mild intermediate signal is seen along the free margin of the midbody lateral meniscus appearing blunt on the proton density coronal weighted images. Free margin tearing. Otherwise, mild intrasubstance signal. IMPRESSION: There is a complex tear of the posterior horn of the medial meniscus with a prominent oblique undersurface component extending along the free margin. Tear extends into the midbody where there is more diffuse degenerative signal and degenerative tearing with a portion of the torn meniscus extending inferiorly along the medial margin of the tibial plateau. Mild free margin tearing midbody lateral meniscus. Degenerative signal otherwise. Minimal chondrosis medial compartment. Trivial chondrosis central weight-bearing lateral femoral condyle. Large joint effusion. Mild sprain of the MCL. THIS IS AN ELECTRONICALLY VERIFIED FINAL REPORT 06/03/2024 2:12 PM - Electronically signed by Vikas Evangelista M.D. MJ: TONYA Report ID: [id number] Reading Location: [id number] Procedure Note Vikas Evangelista MD - 06/03/2024 EXAM DESCRIPTION: MRI KNEE LEFT WO CONTRAST REASON FOR STUDY: Pain Pt c/o new onset of Left medial pain for approx 2 weeks. No known injury. Difficulty walking. Using a cane for stability. Pt stated he occasionallyhas muscle spasm in hamstring. TECHNIQUE: Multiplanar, multisequence MRI of the left knee was performed without contrast. COMPARISON: X-rays 05/23/2024 FINDINGS: Joint and Bursae: There is a large joint effusion. No Acosta's cyst. Bones: No acute fracture or suspicious marrow infiltration. No avascularnecrosis. Cartilage: Motion degrades imaging. Patellofemoral: No significant chondrosis. Medial compartment: Minimal chondrosis. Lateral Compartment: Trivial chondrosis centralweight-bearing lateral femoral condyle. Ligaments: The ACL, PCL, MCL and lateral collateral ligament complex are intact. Mild sprain of the MCL. Extensor Mechanism: The quadriceps and patellar tendons are intact. Tendons/Soft tissues: The popliteus tendon is intact. The musculature is intact without evidence of tear. The popliteal neurovascular bundle isnormal. Medial Meniscus: There is a complex tear of the posterior horn of themedial meniscus with a prominent oblique undersurface component extending alongthe free margin. Tear extends into the midbody where there is more diffuse degenerative signal and likely degenerative tearing with a portion of the meniscus extending inferiorly along the medial margin of the tibialplateau. Lateral Meniscus: Mild intermediate signal is seen along the free marginof the midbody lateral meniscus appearing blunt on the proton density coronal weighted images. Free margin tearing. Otherwise, mild intrasubstancesignal. IMPRESSION: There is a complex tear of the posterior horn of the medial meniscus witha prominent oblique undersurface component extending along the free margin.Tear extends into the midbody where there is more diffuse degenerative signaland degenerative tearing with a portion of the torn meniscus extendinginferiorly along the medial margin of the tibial plateau. Mild free margin tearing midbody lateral meniscus. Degenerative signal otherwise. Minimal chondrosis medial compartment. Trivial chondrosis central weight-bearing lateral femoral condyle. Large joint effusion. Mild sprain of the MCL. THIS IS AN ELECTRONICALLY VERIFIED FINAL REPORT 06/03/2024 2:12 PM - Electronically signed by Vikas Evangelista M.D. MJ: TONYA Report ID: [id number] Reading Location: [id number] Bhanu Maddox MD [facility] MRI PROCEDURES Final Result * Neuro MR Outside Reference (05/28/2024 9:55 AM [employer]) Impressions [facility] - 05/28/2024 9:55 AM AUTOM[employer]LE [employer] M[employer] These images are for Reference purposes only and have not been reviewed by [facility]. There will be no report generated by a [facility] Radiologist. Narrative [facility] - 05/28/2024 9:55 AM [employer] EXAMINATION: Images For Reference Purposes Only Jori Moreno MD [facility] MRI PROCEDURES Final Result [facility] * Neuro MR Outside Reference (05/28/2024 9:54 AM AUTOM[employer]) Impressions [facility] - 05/28/2024 9:54 AM AUTOM[employer] M[employer] These images are for Reference purposes only and have not been reviewed by [facility]. There will be no report generated by a [facility] Radiologist. Narrative [facility] - 05/28/2024 9:54 AM [employer] EXAMINATION: Images For Reference Purposes Only Jori Moreno MD IMG MRI PROCEDURES Final Result Performing Organization Address [facility] Co de Phone Number [facility] * Neuro MR Outside Reference (05/28/2024 9:53 AM AUTOMO[employer]) Impressions [facility] - 05/28/2024 9:53 AM [employer] These images are for Reference purposes only and have not been reviewed by [facility]. There will be no report generated by a [facility] Radiologist. Narrative [facility] - 05/28/2024 9:53 AM [employer] EXAMINATION: Images For Reference Purposes Only Jori Moreno MD IM MRI PROCEDURES Final Result Performing Organization Address [facility] de Phone Number [facility]_PACS[facility] * Neuro MR Outside Reference (05/28/2024 9:52 AM AUTOMO[employer]LE [employer]) Impressions [facility] - 05/28/2024 9:52 AM [employer] These images are for Reference purposes only and have not been reviewed by [facility]. There will be no report generated by a [facility] Radiologist. Narrative [facility] - 05/28/2024 9:52 AM [employer] EXAMINATION: Images For Reference Purposes Only Jori Moreno MD IM MRI PROCEDURES Final Result Performing Organization Address [facility] Co de Phone Number [facility] * XR Outside Reference (05/28/2024 9:51 AM AUTOMO[employer]) Impressions [facility] - 05/28/2024 9:51 AM [employer] These images are for Reference purposes only and have not been reviewed by [facility]. There will be no report generated by a [facility] Radiologist. Narrative [facility] - 05/28/2024 9:51 AM [employer] EXAMINATION: Images For Reference Purposes Only Jori Moreno MD IMG XR PROCEDURES Final Result [facility] * XR Pelvis 1 or 2 Views (05/23/2024 8:34 AM AUTOM[employer]LE [employer]) Anatomical Region Laterality Modality Body, Pelvis N/A Digital Radiogra phy Narrative 05/23/2024 12:22 PM [employer]OM[employer] Mild age-related degenerative change of the bilateral hips with retained joint space. Bhanu Maddox MD IMG XR PROCEDURES Final Result * XR Knee Left 4 or More Views (05/23/2024 8:31 AM AUTOM[employer]LE [employer]) Anatomical Region Laterality Modality Lower Extremities, Knee Left Digital Radiography Narrative 05/23/2024 12:22 PM [employer] Moderate left knee varus osteoarthritis with medial joint space narrowing, subchondral sclerosis, and early osteophyte formation Bhanu Maddox MD IMG XR PROCEDURES Final Result * VA ARTHROCENTESIS ASPIR&/INJ MAJOR JT/BURSA W/O US (05/23/2024 8:30 AM AUT[employer]) Narrative Bhanu Maddox MD - 05/23/2024 8:30 AM [employer]OM[employer] Bhanu Maddox MD 05/23/2024 12:24 PM Large Joint (Hip, Knee, Shoulder) Injection: L knee Performed by: Bhanu Maddox MD Authorized by: Bhanu Maddox MD Large Joint Injection/Aspiration: Consent Given by: Patient Site marked: the procedure site was marked Timeout: prior to procedure the correct patient, procedure, and site was verified Verbal consent obtained: Yes Supporting Documentation: Indications: Pain Procedure Details: Location: Knee Site: L knee Needle Size: 22 G Approach: Anterolateral Ultrasound guided: No Fluroscopic guidance: No Medications: 80 mg methylPREDNISolone acetate 80 mg/mL; 3 mL lidocaine 20 mg/mL (2 %) Patient tolerance: Patient tolerated the procedure well with no immediate complications us Bhanu Maddox MD IN CLINIC/BEDSIDE ORDERA BLES Final Result * XR Scoliosis 4 or 5 Views (05/08/2024 10:10 AM AUTOMO[employer]LE [employer]DER) Anatomical Region Laterality Modality Spine N/A Computed Radiogr aphy 05/08/2024 11:4 2 AM AUTOMO[employer]LE [employer]DER Impressions 05/08/2024 11:54 AM [employer]OM[employer] 1. Unchanged L4-S1 posterior instrumented fusion with combined L5-S1 interbody fusion. Dictated by: Storm Vega MD The radiology attending physician has personally reviewed this study, and had reviewed and/or edited this written report and agrees with it. Electronically signed by: Srinivasa Dickey D.O. Narrative 05/08/2024 11:54 AM [employer]LE [employer] EXAMINATION: XR SCOLIOSIS 4 OR 5 VW HISTORY: Lumbar fusion FINDINGS: Standing frontal and lateral radiographs of the entire spine and lower extremities were obtained using the EOS system. Comparison is made to CT 01/04/2023. There is mild thoracic levocurvature and lumbar dextrocurvature with no significant coronal imbalance or pelvic obliquity. There is anterior sagittal imbalance. There is straightening of the thoracic and lumbar spine. Changes of L4-S1 posterior instrumented fusion with combined interbody fusion at L5-S1. There is additional posterior fusion from L5 to S1. Partially imaged right shoulder arthroplasty. There is mild multilevel cervical degenerative disc disease and mild lumbar degenerative disc disease of the unfused lumbar levels. No abnormal motion with flexion or extension. Procedure Note Srinivasa Dickey DO - 05/08/2024 EXAMINATION: XR SCOLIOSIS 4 OR 5 VW HISTORY: Lumbar fusion FINDINGS: Standing frontal and lateral radiographs of the entire spine and lower extremities were obtained using the EOS system. Comparison is made to CT 01/04/2023. There is mild thoracic levocurvature and lumbar dextrocurvature with no significant coronal imbalance or pelvic obliquity. There is anterior sagittal imbalance. There is straightening of the thoracic and lumbar spine. Changes of L4-S1 posterior instrumented fusion with combined interbody fusion at L5-S1. There is additional posterior fusion from L5 to S1. Partially imaged right shoulder arthroplasty. There is mild multilevel cervical degenerative disc disease and mild lumbar degenerative disc disease of the unfused lumbar levels. No abnormal motion with flexion or extension. IMPRESSION: 1. Unchanged L4-S1 posterior instrumented fusion with combined L5-S1 interbody fusion. Dictated by: Storm Vega MD The radiology attending physician has personally reviewed this study, and had reviewed and/or edited this written report and agrees with it. Electronically signed by: Srinivasa Dickey D.O. us Jori Moreno MD IMG XR PROCEDURES Final Result * eGFR (01/24/2024 9:27 AM CDT) eGFR 68 >=60 mL/min/1. 73 m2 Comment: Interpretive Data Reference Interval Normal >/= 90 mL/min/1.73m2 Mildly decreased* 60 - 89 mL/min/1.73m2 Mildly to moderately decreased 45 - 59 mL/min/1.73m2 Moderately to severely decreased 30 - 44 mL/min/1.73m2 Severely decreased 15 - 29 mL/min/1.73m2 Kidney Failure < 15 mL/min/1.73m2 *Relative to young adult level Estimated glomerular filtration rate is determined by the 2020 CKD-EPI equation recommended by the National Kidney Foundation (A Unifying Approach to GFR Estimation: Recommendations of the NKF-ASK Task Force on Reassessing the Inclusion of Race in Diagnosing Kidney Disease, JASN 2020). The CKD-EPI equation should not be used for patients with unstable renal function and has not been validated in children and those over 70. Current interpretive data was last reviewed 2021. Blood 01/24/2024 9:27 AM CDT 01/24/2024 10:55 AM CDT us Bhanu Borja MD LAB BLOOD ORDERABLES Fi nal Result [facility] [place]) 1 [facility] [place] [address] * PSA screen (01/24/2024 9:27 AM CDT) PSA-Total 4.63 <=6.20 ng/mL Comment: Interpretive Data AGE SEX REFERENCE INTERVAL 0 minutes-150 years Female None 0 minutes-49 years Male None 50-59 years Male 0-3.90 60-69 years Male 0-5.40 70-79 years Male 0-6.20 80-150 years Male 0-6.20 The Ezra PSA Total assay procedure was used. Results from different manufacturers or methods may not be comparable. Serial testing should be performed using the same method. Current interpretive data last revised 21. Blood 01/24/2024 9:27 AM CDT 01/24/2024 10:55 AM CDT Bhanu Borja MD LAB BLOOD ORDERABLES Fi nal Result Performing Organization Address [facility] Co de Phone Number [facility] ([place]) 1 [facility] [place] [address] * (ABNORMAL) Hemoglobin A1c (01/24/2024 9:27 AM CDT) Pathologist [facility] Hgb A1C 6.9(H) 4.0 - 5.6 % Estimated Average Glucose 151 mg/dL [facility] ([place]) Comment: The ADA recommends reporting an estimated Average Glucose (eAG) with all Hemoglobin A1c results using the equation derived from a study of 507 normal and diabetic adults. Minority populations were underrepresented and children were not included. (Diabetes Care 31:2946-9280, 2008). The eAG is not equivalent to a fasting glucose. Blood 01/24/2024 9:27 AM CDT 01/24/2024 10:55 AM CDT Bhanu Borja MD LAB BLOOD ORDERABLES Fi nal Result Performing Organization Address City/[facility]/ZIP Co de Phone Number [facility] ([place]) 1 [facility] [place] [address] * (ABNORMAL) Lipid panel (01/24/2024 9:27 AM CDT) Cholesterol 211(H) 30 - 199 mg/dL Comment: Interpretive Data Ages < or = 19 years Acceptable: <170 mg/dL Borderline high: 170-199 mg/dL High: >or= 200 mg/dL Ages > or = 20 years Desirable: <200 mg/dL Borderline high: 200-239 mg/dL High: >or= 240 mg/dL Literature References: 1. Expert Panel on Integrated Guidelines for Cardiovascular Health and Risk Reduction in Children and Adolescents. Pediatrics 2011;128:S213 2. NCEP Expert Panel. Circulation 2004;110:227 Current Interpretive Data was last revised on 2017. Triglycerides 59 <=149 mg/dL [facility] ([place]) Comment: Interpretive Data Ages < or = 9 years Acceptable: <75 mg/dL Borderline high: 75-99 mg/dL High: >or= 100 mg/dL Ages 10 to 20 years Acceptable: <90 mg/dL Borderline high: 90-129 mg/dL High: >or= 130 mg/dL Ages > or = 20 years Desirable: <150 mg/dL Borderline high: 150-199 mg/dL High: 200-499 mg/dL Very high: >or= 499 mg/dL Literature References: 1. Expert Panel on Integrated Guidelines for Cardiovascular Health and Risk Reduction in Children and Adolescents. Pediatrics 2011;128:S213 2. NCEP Expert Panel. Circulation 2004;110:227 Current Interpretive Data was last revised on 2017. HDL 98 >=40 mg/dL [facility] ([place]) Comment: Interpretive Data Ages < or = 19 years Acceptable: >45 mg/dL Borderline low: 40-45 mg/dL Low: <40 mg/dL Ages > or = 20 years Desirable: >or= 60 mg/dL Low: <40 mg/dL Literature References: 1. Expert Panel on Integrated Guidelines for Cardiovascular Health and Risk Reduction in Children and Adolescents. Pediatrics 2011;128:S213 2. NCEP Expert Panel. Circulation 2004;110:227 Current Interpretive Data was last revised on 2017. LDL, calculated 102 <=129 mg/dL [facility] ([place]) Comment: Interpretive Data Ages < or = 19 years Acceptable: <110 mg/dL Borderline high: 110-129 mg/dL High: >or= 130 mg/dL Ages > or = 20 years Optimal: <100 mg/dL Near optimal: 100-129 mg/dL Borderline high: 130-159 mg/dL High: >160 mg/dL Calculated using the Stephan LDL-C estimating equation. This equation was implemented on 2023. Prior to this date LDL-C was estimated using the Friedewald equation. Literature References: 1. Expert Panel on Integrated Guidelines for Cardiovascular Health and Risk Reduction in Children and Adolescents. Pediatrics 2011;128:S213 2. NCEP Expert Panel. Circulation 2004;110:227 3. Stephan M et al. MAGED Cardiol. 2020 August 01;5(5):540-548. doi: 10.1001/jamacardio.2020.0013 Current Interpretive Data was last revised on 2023. Non-HDL Cholesterol 113 mg/dL CARA [facility]BBER) Comment: Interpretive Data Ages < or = 19 years Acceptable: <120 mg/dL Borderline high: 120-144 mg/dL High: >145 mg/dL Ages > or = 20 years When triglycerides are >200 mg/dL, Non-HDL cholesterol is a secondary target of therapy with treatment goals that are 30 mg/dL greater than the LDL cholesterol target. Literature References: 1. Expert Panel on Integrated Guidelines for Cardiovascular Health and Risk Reduction in Children and Adolescents. Pediatrics 2011;128:S213 2. NCEP Expert Panel. Circulation 2004;110:227 Current Interpretive Data was last revised on 2017. Chol/HDL ratio 2 PERLA WEBBER) Blood 01/24/2024 9:27 AM CDT 01/24/2024 10:55 AM CDT Narrative CAR[facility]BBER) - 01/24/2024 12:11 PM CDT Has the patient been fasting for 8 hours or more?->Yes us Bhanu Borja MD LAB BLOOD ORDERABLES Fi nal Result [facility]) 1 [facility] [place] [address] * (ABNORMAL) Albumin Creatinine Ratio, Urine (07/25/2023 8:57 AM CDT) [facility] Albumin Ur 391.4 mg/L Comment: Interpretive Data No reference range established. Current interpretive data was last revised 2018. Testing performed by: [address] [address] Creatinine Ur 145.5 mg/dL [facility] ([place]) Comment: Interpretive Data No reference range established. Current interpretive data was last revised 2018. Testing performed by: [address] [address] Albumin Creatinine Ratio, Ur 269(H) 1 - 29 mg/g [facility] ([place]) Comment:Testing performed by : [address] [address] Urine 07/25/2023 8:57 AM CDT 07/25/2023 3:20 PM CDT Narrative [facility] ([place]) - 07/25/2023 5:47 PM CDT fasting Bhanu Borja MD LAB URINE ORDERABLES Fi nal Result CARA JT ([place]) 1 [facility] [place] [address] * (ABNORMAL) Diabetic Eye Exam (02/27/2023) Generic External Data Provider HEALTH MAINTENANC E Final Result * DIABETES FOOT EXAM (08/12/2019) Pathologist [facility] Diabetic Foot Exam Abnormal Historical Provider HEALTH MAINTENANCE Final Result * COLONOSCOPY (06/28/2013) [facility] Colonoscopy Normal Historical Provider HEALTH MAINTENANCE Final Result from Last 3 Months or Most Recently Relevant to Health Maintenance Insurance [facility] [employer] [place] [employer] Address: [address] [address] [place] [address] [facility] [employer] [place] [employer] Address: [address] [address] [place] [address] [employer] [facility] [employer] [place] [employer] Address: [address] [address] Advance Directives For more information, please contact: [phone] * Full Code (Latest Code Status on File) Date Activated Date Inactivated Comments 04/28/2021 12:14 PM 04/29/2021 6:10 PM * Full Code Date Activated Date Inactivated Comments 04/26/2021 9:18 PM 04/28/2021 12:14 PM * Full Code Date Activated Date Inactivated Comments 11/25/2017 11:58 AM 11/25/2017 4:16 PM * Full Code Date Activated Date Inactivated Comments 09/01/2017 7:31 PM 11/24/2017 5:25 PM * Full Code Date Activated Date Inactivated Comments 08/29/2017 5:21 PM 08/30/2017 5:48 PM Care Teams Marketing Content Coordinator Relationship Specialty Start Date End Date Bhanu Borja MD PCP - General 07/01/16
--- OUTSIDE RECORDS SUMMARY | 2024-07-26 11:05 | XMS_ITS | Encounter Summary ---
Author Organization [facility] Address [address] [place] [address] Care Team Providers Care Financial Administrator Name Role Phone Bhanu Borja MD Primary Care Provider Reason for Visit * Reason Onset Date Comments Referral Request 07/15/2024 Encounter Details Date Type Department Care Team (Late st Contact Info) Description 07/15/2024 Telephone [facility] Primary Care at [address] [place] [address] Bhanu Borja MD [address] [place] [address] [address] [place] [address] Referral Request Social History Tobacco Use Types Packs/Day Years Used Date Smoking Tobacco: Never Passive Smoke Exposure: Past Smokeless Tobacco: Never Alcohol Use Standard Drinks/Week Comments Yes 5 [...] week 04/30/2021 How often do you attend [facility] or christian services? More than 4 times per year 04/30/2021 Active Member of Clubs or Organizations Not on f ile 04/30/2021 Attends Club or Organization Meetings Not on adriane e 04/30/2021 Are you , , di vorced, , never , or living with a partner? 04/30/2021 AUDIT-C Answer Date Recorded Q1: How often do you have a drink containing alcohol? Never 06/13/2024 Q2: How many drinks containi ng alcohol do you have on a typical day when you are drinking? Patient does not drink Q3: How often do you have si x or more drinks on one occasion? 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 * Telephone Encounter - Fara Stewart - 07/15/2024 9:41 AM CDT Referral Provider Name: [facility]iology Specialty: Audiology Address: [address] [place] [address] (given by patient) Diagnosis Code/Symptom/Reason Patient is being seen: Routine hearing test, may need hearing aids. Date of Appointment: They need a referral in order for him to schedule visit. NPI#: unknown Tax ID#: unknown Is insurance in chart up to date? yes Additional Comments: Please fax Does message need to be routed? Yes-Action Needed documented in this encounter Plan of Treatment Upcoming Encounters Date Type Department Care Team (Latest Contact Info) Description 08/02/2024 9:40 AM CDT Hospital Encounter [facility] Operating Room [address] [place] [address] Bhanu Maddox MD [address] [facility] [address] [place] [address] 08/02/2024 9:40 AM CDT - 08/02/2024 11:10 AM CDT Surgery [facility] Operating Room [address] [place] [address] Bhanu Maddox MD [address] [facility] [address] [place] [address] Left Knee Arthroscopy with Medial Meniscectomy- [employer], Cooling Unit-[facility], 1 Liter Beta Rinse 09/03/2024 12:00 PM CDT Hospital Encounter [address] [address] Dorian Rodrigues MD [address] [facility] [address] [address] [place] [address] 09/03/2024 12:00 PM CDT - 09/03/2024 12:30 PM CDT Surgery [address] [address] Dorian Rodrigues MD [address] [facility] [address] [address] [place] [address] COLONOSCOPY Scheduled Procedures Name Priority Associated Diagnoses Date/Ti me ARTHROSCOPY KNEE Acute medial meniscus tear of left knee, initial encounter 08/02/2024 9:40 AM CDT COLONOSCOPY Encounter for screening colonoscopy 09/03/2024 12:00 PM CDT documented as of this encounter Visit Diagnoses Not on filedocumented in this encounter Care Teams Financial Administrator Relationship Specialty Start Date End Date Bhanu Borja MD PCP - General 07/01/16 documented as of this encounter
--- OUTSIDE RECORDS SUMMARY | 2024-07-26 11:05 | XMS_ITS | Clinical Summary ---
Author Organization [facility] Address [address] [place] [address] Care Team Providers [employer] General Manager Name Role Phone Unavailable Primary Care Provider Unavailabl e Source Comments [facility],non-owned Affiliates and Associated Physician Practices is amultiple site organization consisting of ambulatory clinics and hospital sitesin [place], [place], [place] and [place]. This disclosure is being madepursuant to the Care Everywhere program and may not contain all information available regarding this patient. Last updated 17.[facility] [employer] Social History Tobacco Use Types Packs/Day Years Used Date Smoking Tobacco: Never Assessed Sex and Gender Information Value Date Recorded Sex Assigned at Not on file Legal Sex Male 11:19 AM CDT Gender Identity Not on file Sexual Orientation Not on file Plan of Treatment Health Maintenance Due Date Last Done Comments DTAP/TDAP/TD VACCINES (1 - Tdap) 1961 PNEUMOCOCCAL VACCINE 50+ (1 of 1 - PCV) 1992 ZOSTER VACCINE (1 of 2) 1992 Respiratory Syncytial Virus (RSV) Vaccine Pt: or over 60 yrs (1 - 1-dose 75+ series) 2017 COVID-19 VACCINE ( - 2023-2 5 season) 2023 DEPRESSION SCREENING 04/03/2024 MEDICARE AWV CALENDAR YEAR 2024 INFLUENZA VACCINE (Season Ended) 2024 HEPATITIS B VACCINE Aged Out No longe r eligible based on patient's age to complete this topic HIB VACCINE Aged Out No longer eligi ble based on patient's age to complete this topic HPV VACCINE Aged Out No longer eligi ble based on patient's age to complete this topic MENINGOCOCCAL (Group B) VACC INE SHARED DECISION-MAKING Aged Out No longer eligibl e based on patient's age to complete this topic MENINGOCOCCAL GROUPS A/C/Y/W VACCINE Aged Out No longer eligible b ased on patient's age to complete this topic Insurance [facility] MANAG[facility] MEDICARE ADV [facility] ADV
--- OUTSIDE RECORDS SUMMARY | 2024-07-26 11:05 | XMS_ITS | Clinical Summary ---
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 Laborer Name Role Phone Bhanu Borja MD Primary [...] wheezing or shortness of breath 8.5 g 2024 Discontinued(T herapy completed) naloxone (NARCAN) 4 [...] hours as needed for cough 240 mL 025 2024 Discontinued(T herapy completed) insulin degludec (TRESIBA) 100 unit/mL (3 mL) pen for injection INJECT 0.16 ML (16 UNITS TOTAL) UNDER THE SKIN DAILY 15 mL 2024 Discontinued(D uplicate order) Active Problems Problem Noted Date Diagnosed Date Acute medial meniscus tear of left knee 07/23/19 Flat back syndrome, postprocedural 06/10/2024 Encounter for screening colonoscopy 02/12/2024 Acute cough 04/11/2023 Assessment & Plan (04/11/2023 11:13 AM LEAD MASSAGE THERAPIST): Acute on chronic problem- this is a [...] 08/02/2021 Assessment & Plan (04/11/2023 11:07 AM LEAD MASSAGE THERAPIST): Chronic problem- stable Encouraged to follow up [...] 06/14/2021 Assessment & Plan (04/11/2023 11:09 AM LEAD MASSAGE THERAPIST): Chronic problem- poorly controlled, this is a [...] pollen Assessment & Plan (04/11/2023 11:06 AM LEAD MASSAGE THERAPIST): Chronic problem-poorly controlled with current regimen Encouraged [...] scheduled Assessment & Plan (05/21/2020 10:19 AM LEAD MASSAGE THERAPIST): Mild left eye (OS)>OD with excellent visual [...] 04/06/2020 Assessment & Plan (04/06/2020 7:56 PM LEAD MASSAGE THERAPIST): Resolved by OCT eval Taper off pred [...] 06/11/2019 Assessment & Plan (02/20/2024 12:16 PM LEAD MASSAGE THERAPIST): intraocular pressure (IOP) remains acceptable in low-mid [...] months Assessment & Plan (04/06/2020 7:54 PM LEAD MASSAGE THERAPIST): 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 Difficult to identify optic nerve (ON) abnormality by exam due to small discs, but evident on OCT. intraocular pressure (IOP) controlled with avg/thick CCT on single class with moderate visual field (VF) loss (IA) intraocular pressure (IOP) improved status post (s/p) cataract extraction (CE)/KDB OD CPM F/U 3 months with Guzman visual field (HVF)/OCT Assessment & Plan (10/07/2019 [...] 06/11/2019 Assessment & Plan (02/20/2024 12:16 PM LEAD MASSAGE THERAPIST): intraocular pressure (IOP) low to mid teens [...] months as scheduled Controlled type 2 diabetes m seb without complication, without long-term current use of [...] care. Assessment & Plan (05/04/2021 10:41 AM LEAD MASSAGE THERAPIST): The patient was counseled on a heart-healthy, diabetic-friendly diet, as well as life-style modification. Education provided on the diagnosis and risks of the disease. We will continue to monitor routine labs. Additionally, He was counseled on routine diabetic eye exams, foot exams, and other preventive care. Assessment & Plan (04/06/2020 7:58 PM LEAD MASSAGE THERAPIST): Intraretinal fluid left eye (OS) cystoid macular edema (CME) resolved right eye (OD) Refer to Retina for baseline eval Last ScxQ2R=8.2 per pt, now on insulin therapy Assessment & Plan (02/05/2020 8:20 AM LEAD MASSAGE THERAPIST): The patient was counseled on a heart-healthy, [...] HYPERTENSION Assessment & Plan (04/11/2023 11:13 AM LEAD MASSAGE THERAPIST): Chronic problem-normally well controlled Continue amlodipine 5 [...] hypertension. Assessment & Plan (02/05/2020 8:20 AM LEAD MASSAGE THERAPIST): Recommend DASH diet, heart-healthy lifestyle, exercise. Discussed [...] in right testicle 05/17/202106/13 Epididymitis, right 04/27/2021 03/13/20 25 Acute cystitis without hematuria 10/11/2020 05/04/2021 DDD [...] (09/24/2019): Added automatically from request for surgery [id number] Assessment & Plan (10/07/2019 9:09 PM CDT): Visually significant- posterior subcapsular cataract (PSC) component Primary open angle glaucoma of right eye, moderate stage 09/24/2019 07/06/2020 Overview (09/24/2019): Added automatically from request for surgery [id number] Nuclear sclerotic cataract of right eye 09/24/2019 04/06/2020 Overview (10/08/2019): Added automatically from request for surgery [id number] Lumbosacral spondylosis without myelopathy 08/14/2019 12/30/2020 Chronic [...] Acute renal failure 06/14/19 25 Gastritis 06/13/2024 Encounters Date Type Department Care Team Description 07/16/2024 8:30 AM CDT Office Visit [facility] Medical Group Orthopedics and Sports Medicine [address] [place] [address] Bhanu Maddox MD Acute medial meniscus tear of left knee, initial encounter (Primary Dx); Primary osteoarthritis of left knee 07/16/2024 Orders Only [facility] Primary Care at [address] [place] [address] Bhanu Borja MD Encounter for hearing examination, unspecified whether abnormal findings (Primary Dx) 07/15/2024 Telephone [facility] Primary Care at [address] [place] [address] Bhanu Borja MD Referral Request 06/17/2024 Orders Only [facility] Primary Care at [address] [place] [address] Camila Mirza, PERSONAL LINES SALES EXECUTIVE 06/17/2024 Telephone [facility] Primary Care at [address] [place] [address] Camila Mirza, PERSONAL LINES SALES EXECUTIVE 06/14/2024 Telephone [facility] Gastroenterology at [address] [place] [address] Riana Cox Colonoscopy Reschedule 06/13/2024 11:00 AM CDT Office Visit [facility] Primary Care at [address] [place] [phone] Camila Mirza, PERSONAL LINES SALES EXECUTIVE Lower resp. tract infection (Primary Dx); Acute cough; Class 1 obesity with body mass index (BMI) of 31.0 to 31.9 in adult, unspecified obesity type, unspecified whether serious comorbidity present 06/13/2024 Orders Only [facility] Primary Care at [address] [place] [phone] Bhanu Borja MD 06/13/2024 Telephone [facility] Primary Care at [address] [phone] Bhanu Borja MD Med Refill 06/13/2024 Nurse Triage [facility] Primary Care at [address] [address] Bhanu Borja MD 06/03/2024 6:39 AM LEAD MASSAGE THERAPIST - 06/03/2024 11:59 PM LEAD MASSAGE THERAPIST Hospital Encounter [facility] [address] [place] [address] Left knee pain, unspecified chronicity Discharge Disposition: Discharge to home or self care 05/28/2024 9:55 AM LEAD MASSAGE THERAPIST - 05/28/2024 11:59 PM LEAD MASSAGE THERAPIST Hospital Encounter [facility] [place] [facility] [address] [place] [address] Discharge Disposition: Discharge to home or self care 05/28/2024 9:54 AM LEAD MASSAGE THERAPIST - 05/28/2024 11:59 PM LEAD MASSAGE THERAPIST Hospital Encounter [facility] [place] [facility] [address] [place] [address] Discharge Disposition: Discharge to home or self care 05/28/2024 9:53 AM LEAD MASSAGE THERAPIST - 05/28/2024 11:59 PM LEAD MASSAGE THERAPIST Hospital Encounter [facility] [place] [facility] [address] [place] [address] Discharge Disposition: Discharge to home or self care 05/28/2024 9:52 AM LEAD MASSAGE THERAPIST - 05/28/2024 11:59 PM LEAD MASSAGE THERAPIST Hospital Encounter [facility] [place] [facility] [address] [place] [address] Discharge Disposition: Discharge to home or self care 05/28/2024 9:51 AM LEAD MASSAGE THERAPIST - 05/28/2024 11:59 PM LEAD MASSAGE THERAPIST Hospital Encounter [facility] [place] [facility] [address] [place] [address] Discharge Disposition: Discharge to home or self care 05/28/2024 Orders Only [facility] Orthopedics and Sports Medicine [address] [place] [address] Bhanu Maddox MD Left knee pain, unspecified chronicity (Primary Dx) 05/23/2024 8:30 AM LEAD MASSAGE THERAPIST Office Visit [facility] Orthopedics and Sports Medicine [address] [place] [address] Bhanu Maddox MD Primary osteoarthritis of left knee (Primary Dx); Left knee pain, unspecified chronicity; Pes anserinus bursitis of left knee 05/23/2024 7:39 AM LEAD MASSAGE THERAPIST - 05/23/2024 11:59 PM LEAD MASSAGE THERAPIST Hospital Encounter [facility] Medical [facility] Orthopedics and Sports Medicine [address] [place] [address] Discharge Disposition: Discharge to home or self care 05/23/2024 7:39 AM LEAD MASSAGE THERAPIST - 05/23/2024 11:59 PM LEAD MASSAGE THERAPIST Hospital Encounter [facility] Orthopedics and Sports Medicine [address] [place] [address] Discharge Disposition: Discharge to home or self care 05/16/2024 Orders Only [facility] Orthopaedic Surgery [address] [place] [address] [place] [address] Jori Moreno MD Spinal stenosis of lumbar region with neurogenic claudication (Primary Dx); Lumbar spondylosis 05/13/2024 Orders Only [facility] Primary Care at [place] [address] [place] [address] Bhanu Borja MD Age-related osteoporosis without current pathological fracture (Primary Dx); Coronary artery disease involving [place] coronary artery of [place] heart without angina pectoris 05/08/2024 11:00 AM LEAD MASSAGE THERAPIST Office Visit [facility] Orthopaedic Surgery [address] [place] [address] [place] [address] Jori Moreno MD Spinal stenosis of lumbar region, unspecified whether neurogenic claudication present (Primary Dx); Lumbar radiculopathy 05/08/2024 9:51 AM LEAD MASSAGE THERAPIST - 05/08/2024 11:59 PM LEAD MASSAGE THERAPIST Hospital Encounter [facility] [place] [facility] [address] [place] [address] Spinal stenosis of lumbar region, unspecified whether neurogenic claudication present Discharge Disposition: Discharge to home or self care from Last 3 Months Immunizations Immunization Administration Dates Next Due Influenza, Unspecified 02/02/2024(Deferr ed: Patient Refused),04/11/2023(Deferred: Patient Refused),01/01/2021(Deferred: Patient Refused),01/02/2020(Deferred: Patient Refused),01/01/2019(Deferred: Patient Refused) Pneumococcal Conjugate PCV 13 07/25/2022(Deferre d: Patient Refused) Pneumococcal Conjugate, Unspecified 07/25/2022(D eferred: Patient Refused) Surgical History Surgery Date Site/Laterality Comments OTHER SURGICAL HISTORY 08/29/2017 Right right reverse total shoulder OTHER SURGICAL HISTORY 04/03/2004 - 04/02/2005 L wrist fx: surg LUMBAR FUSION 04/03/1998 - 04/02/1999 lumbar fusion L5-S1 SHOULDER SURGERY 11/25/2017 Right reverse total shoulder revision COLONOSCOPY 04/03/2015 - 04/02/2016 CATARACT EXTRACTION INTRAOCULAR LENS INSERTION Bilateral BACK SURGERY WRIST FRACTURE SURGERY Left Medical History Medical History Date Comments Hx Other Medical L wrist fx Hx Other Medical HOMEOPATHIC / E NDO Sleep apnea Type 2 diabetes mellitus (HCC) Neuropathy Bilateral Feet Arthritis Atrial fibrillation (HCC) since age 9 after rhumatic fever Hypertension Glaucoma Hematuria Erectile dysfunction Back pain Hard to intubate 01/22/2020 Cancer (HCC) Basal cell cance r Neuropathy in diabetes (HCC) Neuromuscular disorder (HCC) lower extremity tereso ropathy Peripheral neuropathy Urinary tract infection PONV (postoperative nausea a nd vomiting) Family History Medical History Relation Name Comments Cancer Daughter Thyroid cancer Daughter Alcohol abuse Father Ponce Rolon Heart attack Father Ponce Rolon Myocardial infa rction; Cause of : Myocardial infarction Heart disease Father Ponce Rolon Hypertension Mother Latasha Gutierrez Hypertension; d ied at 89 Macular degeneration Mother Latasha Gutierrez Diabetes Neg Hx Glaucoma Neg Hx Retinal detachment Neg Hx Relation Name Status Comments Daughter Father Ponce Rolon (Age 72) Mother Latasha Gutierrez Social History Tobacco Use Types Packs/Day Years [...] week 04/30/2021 How often do you attend chur ch or mormonism services? More than 4 times per year [...] place to sleep or slept in a mcc (including now)? No 04/30/2021 Personal Safety Answer Date Recorded Have you ever been in or are you currently in a harmful physical or emotional relationship or is someone making you feel afraid or unsafe? 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 Not on file Not on file Not on file Obstetrics History Last Filed Vital Signs Vital Sign Reading Time Taken Comments Blood Pressure 155/89 07/16/2024 8:24 AM CDT Pulse 89 07/16/2024 8:24 AM CDT Temperature 36.3 C (97.4 F) 06/13/2024 10:59 AM CDT Respiratory Rate 16 06/13/2024 10:5 9 AM CDT Oxygen Saturation 96% 06/13/2024 10: 59 AM CDT Inhaled Oxygen Concentration - - Weight 111.6 kg (246 lb 0.5 oz) 025 11:01 AM CDT Height 185.4 cm (6' 0.99 ) 07/16/2024 1 1:01 AM CDT Body Mass Index 32.47 07/16/2024 11:01 AM CDT Plan of Treatment Upcoming Encounters Date Type Department Care Team (Latest Contact Info) Description 08/02/2024 9:40 AM CDT Hospital Encounter [facility] Operating Room [address] [place] [address] Bhanu Maddox MD [address] [place] [address] 08/02/2024 9:40 AM CDT - 08/02/2024 11:10 AM CDT Surgery [facility] Operating Room [address] [place] [address] Bhanu Maddox MD [address] [place] [address] Left Knee Arthroscopy with Medial Meniscectomy- Arthroscopy Equipments, Cooling Unit-Polar Care, 1 Liter Beta Rinse 09/03/2024 12:00 PM CDT Hospital Encounter [facility] [address] [place] [address] Dorian Rodrigues MD [address] [place] [address] 09/03/2024 12:00 PM CDT - 09/03/2024 12:30 PM CDT Surgery [facility] [address] [place] [address] Dorian Rodrigues MD [address] [place] [address] COLONOSCOPY Scheduled Procedures Name Priority Associated Diagnoses Date/Ti me ARTHROSCOPY KNEE Acute medial meniscus tear of left knee, initial encounter 08/02/2024 9:40 AM CDT COLONOSCOPY Encounter for screening colonoscopy 09/03/2024 12:00 PM CDT Health Maintenance Due Date Last Done Comments DTaP/Tdap/Td Vaccine (1 - Tdap) 1953 Hepatitis B Screening 1960 Pneumococcal vaccine 65+ (1 of 2 - PCV) 1961 Zoster Vaccine (1 of 2) 1992 Colon Cancer Screening-Colonoscopy 06/29/2023 06/28/2013, 06/28/2013 Albumin Creatinine Ratio, Urine 07/24/2024 07/25/2023, 01/26/2023, 01/03/2022, Additional history exists Hemoglobin A1C 07/24/2024 01/24/2024, 07/03, 01/26/2023, Additional history exists Well Visit 65+ 07/27/2024 07/28/2023, 07/03, 07/01/2021, Additional history exists Influenza Vaccine (Season Ended) 2024 Lipid Panel 01/23/2025 01/24/2024, 07/03, 01/26/2023, Additional history exists Prostate Cancer Screening-PSA 01/23/2025, 07/20/2022, 01/03/2022, Additional history exists eGFR 01/23/2025 01/24/2024, 07/03, 01/26/2023, Additional history exists Foot Exam 02/01/2025 02/02/2024, 07/03, 01/26/2023, Additional history exists Dilated Eye Exam 03/14/2025 03/14/2024, , 02/27/2023, Additional history exists Depression Screening 06/13/2025 06/13/2024, 02/02/2024, 07/28/2023, Additional history exists Fall Risk Assessment 06/13/2025 06/13/2024, 02/02/2024, 07/28/2023, Additional history exists Colon Cancer Screening-CT Colonography Discontinued 06/28/2013, 06/28/2013 Colon Cancer Screening-DNA Stool Discontinued 06/29/19 14, 06/28/2013 Colon Cancer Screening-FIT Discontinued 06/28/2013, Colon Cancer Screening-Sigmoidoscopy Discontinued 06/28/2013, 06/28/2013 Medical Devices Implanted Type Area Slubber Machine Operator Device Identifier Shelf Expiration Date Model / Serial / Lot Plate Glenoid Equinoxe Standard Reverse - [id number] - [id number] Implanted:Qty: 1 on 08/29/2017 by Karthik Herring MD at [facility] Other - see comments Right: Shoulder Exactech 06/10/2026 320-15-0 1 / [id number] / Screw Bone Equinoxe Shoulder Glenosphere Lock Reverse - [id number] - [id number] Implanted:Qty: 1 on 08/29/2017 by Karthik Herring MD at [facility] Other - see comments Right: Shoulder [employer]ech 320-15-0 5 / [id number] / Cmpnt Glenoid 42mm Glenosphere Equinoxe Shldr - [id number] - [id number] Implanted:Qty: 1 on 08/29/2017 by Karthik Herring MD at [facility] Other - see comments Right: Shoulder [employer] 05/16/2027 320-01-4 2 / [id number] / Stem Humeral Equinoxe Od15 Mm Shoulder Press Fit - [id number] - [id number] Implanted:Qty: 1 on 08/29/2017 by Karthik Herring MD at [facility] Other - see comments Right: Shoulder [employer] 10/28/2026 300-01-1 5 / [id number] / Screw Bone Equinoxe L26 Mm Od4.5 Mm Shoulder Kit Compression Lock Cap Reverse [place] - [id number] - [id number] Implanted:Qty: 1 on 08/29/2017 by Karthik Herring MD at [facility] Screw Right: Shoulder [employer] 01/31/2022 320-20-2 6 / [id number] / Screw Bone Equinoxe L22 Mm Od4.5 Mm Shoulder Kit Compression Lock Cap Reverse Black - [id number] - [id number] Implanted:Qty: 1 on 08/29/2017 by Karthik Herring MD at [facility] Screw Right: Shoulder [employer] 02/08/2022 320-20-2 2 / [id number] / Exactech 320-20-00 Reverse Torque Define Shoulder Kit Screw - [id number] - [id number] Implanted:Qty: 1 on 11/25/2017 by Karthik Herring MD at [facility] Right: Shoulder [employer] 10/31/2022 320-20-0 0 / [id number] / Exactech 320-10-00 Equinoxe Reverse Shoulder +0mm Tray Humeral Adapter - [id number] - [id number] Implanted:Qty: 1 on 11/25/2017 by Karthik Herring MD at [facility] Right: Shoulder [employer] 10/24/2027 320-10-0 0 / [id number] / Exactech 320-42-13 Equinoxe 42mm Reverse Constrained Shoulder +2.5mm Liner Humeral - [id number] - [id number] Implanted:Qty: 1 on 11/25/2017 by Karthik Herring MD at [facility] Right: Shoulder [employer]ech 07/10/2021 320-42-1 3 / [id number] / [employer] Co-S2326 Acu-Loc 2.3mm 26mm Smooth Lock Cortical Peg Fixation Titanium - [id number] Implanted:Qty: 1 on 01/22/2019 by Karthik Herring MD at [facility] Left: Wrist [employer] CO-S2326 / / N/A Co-2328 28mm Peg Implanted:Qty: 2 on 01/22/2019 by Karthik Herring MD at [facility] Left: Wrist [employer] C1713 CO-2328 / / N/A Description:ITEM NUMBER IS C O-S2328 NOT FOUND IN [place] [employer] Co-S2324 Acu-Loc 2.3mm 24mm Smooth Lock Cortical Peg Fixation Titanium - [id number] Implanted:Qty: 1 on 01/22/2019 by Karthik Herring MD at [facility] Left: Wrist [employer] CO-S2324 / / N/A [employer] Co-S2322 Acu-Loc 2.3mm 22mm Smooth Lock Cortical Peg Fixation Titanium - [id number] Implanted:Qty: 2 on 01/22/2019 by Karthik Herring MD at [facility] Left: Wrist [employer] CO-S2322 / / N/A [employer] 30-0305 3mm 16mm Nonlock Hexalobe Head Screw Bone Nonsterile - [id number] Implanted:Qty: 1 on 01/22/2019 by Karthik Herring MD at [facility] Left: Wrist [employer] 30-0305 / / N/A [employer] 30-0282 3mm 16mm Lock Hexalobe Head Screw Bone Nonsterile - [id number] Implanted:Qty: 1 on 01/22/2019 by Karthik Herring MD at [facility] Left: Wrist [employer] 30-0282 / / N/A 70-0360 Wide Plate Implanted:Qty: 1 on 01/22/2019 by Karthik Herring MD at [facility] Left: Wrist [employer] Inc C1713 70-0360 / / N/A Eda [employer] [id number] Tecnis Tecnis Itec Protec Tri-Fix 6mm 13mm 1 Piece Anterior - [id number] - [id number] Implanted:Qty: 1 on 10/15/2019 by Anjana Rosa MD at [facility] Right: Eye [place] [employer] [id number] 01/20/2022 [id number] / [id number] 10 / Explanted Type Area Slubber Machine Operator Device Identifier Shelf Expiration Date Model / Serial / Lot Kit Screw Shoulder Reverse Torque Define - [id number] - [id number] Implanted:Qty : 1 on 08/29/2017 by Karthik Herring MD at [facility] Explanted:Qty : 1 on 11/25/2017 at [facility] Other - see comments Right: Shoulder [employer]ech 06/29/2022 320-20-00 / [id number] / Tray Humeral Adapter Equinoxe +0 Mm Reverse Shoulder System - [id number] - [id number] Implanted:Qty : 1 on 08/29/2017 by Karthik Herring MD at [facility] Explanted:Qty : 1 on 11/25/2017 at [facility] Other - see comments Right: Shoulder [employer]ech 06/19/2027 320-10-00 / [id number] / 42mm Humeral Liner Implanted:Qty : 1 on 08/29/2017 by Karthik Herring MD at [facility] Explanted:Qty : 1 on 11/25/2017 at [facility] Other - see comments Ex[employer]ech 01/04/2022 320-42-03 / [id number] / Procedures Procedure Name Priority Date/Time Associated Diagnosis Comments MRI KNEE LEFT WO CONTRAST Schedule Routine, Read Routine (OP Routine) 06/03/2024 7:45 AM LEAD MASSAGE THERAPIST Left knee pain, unspecified chronicity NEURO MR OUTSIDE REFERENCE Routine 05/28/2024 9:55 AM LEAD MASSAGE THERAPIST NEURO MR OUTSIDE REFERENCE Routine 05/28/2024 9:54 AM LEAD MASSAGE THERAPIST NEURO MR OUTSIDE REFERENCE Routine 05/28/2024 9:53 AM LEAD MASSAGE THERAPIST NEURO MR OUTSIDE REFERENCE Routine 05/28/2024 9:52 AM LEAD MASSAGE THERAPIST XR TRANSFER OF OUTSIDE FILMS Routine 05/28/2024 9:51 AM LEAD MASSAGE THERAPIST XR PELVIS 1 OR 2 VIEWS Schedule Routine, Read Routine (OP Routine) 05/23/2024 8:34 AM LEAD MASSAGE THERAPIST Left knee pain, unspecified chronicity XR KNEE LEFT 4 OR MORE VIEWS Schedule Routine, Read Routine (OP Routine) 05/23/2024 8:31 AM LEAD MASSAGE THERAPIST Left knee pain, unspecified chronicity MA ARTHROCENTESIS ASPIR&/INJ MAJOR JT/BURSA W/O US Routine 05/23/2024 8:30 AM LEAD MASSAGE THERAPIST Primary osteoarthritis of left knee XR SCOLIOSIS 4 OR 5 VW Schedule Routine, Read Routine (OP Routine) 05/08/2024 10:10 AM LEAD MASSAGE THERAPIST Spinal stenosis of lumbar region, unspecified whether [...] Knee Left WO Contrast (06/03/2024 7:45 AM LEAD MASSAGE THERAPIST) Anatomical Region Laterality Modality Lower Extremities Left Magnetic Reson ance 06/03/2024 2:01 PM LEAD MASSAGE THERAPIST Narrative 06/03/2024 2:12 PM LEAD MASSAGE THERAPIST EXAM DESCRIPTION: MRI KNEE LEFT WO CONTRAST [...] 2:12 PM - Electronically signed by Vikas Evangleista M.D. MJ: TONYA Report ID: [id number] Reading Location: [id number] Procedure Note Vikas Evangelista MD - 06/03/2024 [...] Vikas Evangelista M.D. MJ: TONYA Report ID: [id number] Reading Location: [id number] Bhanu Maddox MD IMG MRI PROCEDURES Final Result * Neuro MR Outside Reference (05/28/2024 9:55 AM LEAD MASSAGE THERAPIST) Impressions RAD_PACS_BJ - 05/28/2024 9:55 AM LEAD MASSAGE THERAPIST These images are for Reference purposes only and have not been reviewed by [facility] Radiology. There will be no report generated by a [facility] Radiologist. Narrative RAD_PACS_BJ - 05/28/2024 9:55 AM LEAD MASSAGE THERAPIST EXAMINATION: Images For Reference Purposes Only Result [facility] Jori Moreno MD [facility] MRI PROCEDURES Final Result Performing Organization Address City/[facility] Co de Phone Number RAD_PACS_[facility] * Neuro MR Outside Reference (05/28/2024 9:54 AM LEAD MASSAGE THERAPIST) Impressions RAD_PACS_BJ - 05/28/2024 9:54 AM LEAD MASSAGE THERAPIST These images are for Reference purposes only and have not been reviewed by [facility] Radiology. There will be no report generated by a [facility] Radiologist. Narrative RAD_PACS_BJ - 05/28/2024 9:54 AM LEAD MASSAGE THERAPIST EXAMINATION: Images For Reference Purposes Only Jori Moreno MD [facility] MRI PROCEDURES Final Result Performing Organization Address City/[facility] [facility]/ZIP Co de Phone Number RAD_P[facility] * Neuro MR Outside Reference (05/28/2024 9:53 AM LEAD MASSAGE THERAPIST) Impressions RAD_PACS_[facility] - 05/28/2024 9:53 AM LEAD MASSAGE THERAPIST These images are for Reference purposes only and have not been reviewed by [facility] Radiology. There will be no report generated by a [facility] Radiologist. Narrative RAD_PACS_[facility]J - 05/28/2024 9:53 AM LEAD MASSAGE THERAPIST EXAMINATION: Images For Reference Purposes Only Jori Moreno MD IMG MRI PROCEDURES Final Result Performing Organization Address [facility] de Phone Number RAD_PACS[facility] * Neuro MR Outside Reference (05/28/2024 9:52 AM LEAD MASSAGE THERAPIST) Impressions RAD_PACS_[facility] - 05/28/2024 9:52 AM LEAD MASSAGE THERAPIST These images are for Reference purposes only and have not been reviewed by [facility] Radiology. There will be no report generated by a [facility] Radiologist. Narrative RAD_PACS_BJ - 05/28/2024 9:52 AM LEAD MASSAGE THERAPIST EXAMINATION: Images For Reference Purposes Only Jori Moreno MD IMG MRI PROCEDURES Final Result Performing Organization Address [facility] de Phone Number [facility] * XR Outside Reference (05/28/2024 9:51 AM LEAD MASSAGE THERAPIST) Impressions RAD_PACS_[facility] - 05/28/2024 9:51 AM LEAD MASSAGE THERAPIST These images are for Reference purposes only and have not been reviewed by [facility] Radiology. There will be no report generated by a [facility] Radiologist. Narrative RAD_PACS_BJ - 05/28/2024 9:51 AM LEAD MASSAGE THERAPIST EXAMINATION: Images For Reference Purposes Only Jori Moreon MD IMG XR PROCEDURES Final Result Performing Organization Address [facility] de Phone Number [facility] * XR Pelvis 1 or 2 Views (05/23/2024 8:34 AM LEAD MASSAGE THERAPIST) Anatomical Region Laterality Modality Body, Pelvis N/A Digital Radiogra phy Narrative 05/23/2024 12:22 PM LEAD MASSAGE THERAPIST Mild age-related degenerative change of the bilateral hips with retained joint space. Bhanu Maddox MD IMG XR PROCEDURES Final Result * XR Knee Left 4 or More Views (05/23/2024 8:31 AM LEAD MASSAGE THERAPIST) Anatomical Region Laterality Modality Lower Extremities, Knee Left Digital Radiography Narrative 05/23/2024 12:22 PM LEAD MASSAGE THERAPIST Moderate left knee varus osteoarthritis with medial joint space narrowing, subchondral sclerosis, and early osteophyte formation Bhanu Maddox MD IMG XR PROCEDURES Final Result * MA ARTHROCENTESIS ASPIR&/INJ MAJOR JT/BURSA W/O US (05/23/2024 8:30 AM LEAD MASSAGE THERAPIST) Narrative Bhanu Maddox MD - 05/23/2024 8:30 AM LEAD MASSAGE THERAPIST Bhanu Maddox MD 05/23/2024 12:24 PM Large [...] the procedure well with no immediate complications Result [facility] Bhanu Maddox MD IN CLINIC/BEDSIDE ORDERA BLES Final Result * XR Scoliosis 4 or 5 Views (05/08/2024 10:10 AM LEAD MASSAGE THERAPIST) Anatomical Region Laterality Modality Spine N/A Computed Radiogr aphy 05/08/2024 11:4 2 AM LEAD MASSAGE THERAPIST Impressions 05/08/2024 11:54 AM LEAD MASSAGE THERAPIST 1. Unchanged L4-S1 posterior instrumented fusion with combined L5-S1 interbody fusion. Dictated by: Storm Vega MD The radiology attending physician has personally reviewed this study, and had reviewed and/or edited this written report and agrees with it. Electronically signed by: Srinivasa Dickey D.O. Narrative 05/08/2024 11:54 AM LEAD MASSAGE THERAPIST EXAMINATION: XR SCOLIOSIS 4 OR 5 VW [...] with flexion or extension. Procedure Note Srinivasa Dickey, DO - 05/08/2024 EXAMINATION: XR SCOLIOSIS 4 [...] it. Electronically signed by: Srinivasa Dickey D.O. Jori Moreno MD IMG XR PROCEDURES Final [...] LAB BLOOD ORDERABLES Fi nal Result [facility] NEHAW[facility] [address] [facility] Department [place] [address] * PSA screen (01/24/2024 9:27 AM CDT) [...] ORDERABLES Fi nal Result Performing Organization Address [facility] Co de Phone Number CARA WATERS (JEEVAN) 1 [facility] [employer] [place] [address] * (ABNORMAL) Hemoglobin A1c (01/24/2024 9:27 AM CDT) Hgb A1C 6.9(H) 4.0 - 5.6 % Estimated Average Glucose 151 mg/dL CARA WATERS (JEEVAN) Comment: The ADA recommends reporting an estimated Average Glucose (eAG) with all Hemoglobin A1c results using the equation derived from a study of 507 normal and diabetic adults. Minority populations were underrepresented and children were not included. (Diabetes Care 31:5934-0989, 2008). The eAG is not equivalent to a fasting glucose. Blood 01/24/2024 9:27 AM CDT 01/24/2024 10:55 AM CDT Bhanu Borja MD LAB BLOOD ORDERABLES Fi nal Result Performing Organization Address [facility] Co de Phone Number CARA WATERS (NEHAWKA) 1 [facility] [employer] [place] [address] * (ABNORMAL) Lipid panel (01/24/2024 9:27 AM [...] on 2017. HDL 98 >=40 mg/dL CARA WEBBER) Comment: Interpretive Data Ages [...] 2017. LDL, calculated 102 <=129 mg/dL CARA WEBBER) Comment: Interpretive Data Ages [...] NCEP Expert Panel. Circulation 2004;110:227 3. Stephan Reddy al. MAGED Cardiol. 2020 August 01;5(5):540-548. doi: 10.1001/jamacardio.2020.0013 Current Interpretive Data was last revised on 2023. Non-HDL Cholesterol 113 mg/dL CRAA WATERS (JEEVAN) Comment: Interpretive Data Ages < [...] last revised on 2017. Chol/HDL ratio 2 ELIZABETHNE R JT (JEEVAN) Blood 01/24/2024 9:27 AM CDT 01/24/2024 10:55 AM CDT Narrative CARA WATERS (JEEVAN) - 01/24/2024 12:11 PM CDT Has the patient been fasting for 8 hours or more?->Yes us Bhanu Borja MD LAB BLOOD ORDERABLES Fi nal Result CARA WATERS (JEEVAN) [address] [facility] Department [place] [address] * (ABNORMAL) Albumin Creatinine Ratio, Urine (07/25/2023 8:57 AM CDT) Albumin Ur 391.4 mg/L Comment: Interpretive Data No reference range established. Current interpretive data was last revised 2018. Testing performed by: [address] [address] Creatinine Ur 145.5 mg/dL CARA WATERS (JEEVAN) Comment: Interpretive Data No reference range established. Current interpretive data was last revised 2018. Testing performed by: [address] [address] Albumin Creatinine Ratio, Ur 269(H) 1 - 29 mg/g CARA WATERS (JEEVAN) Comment:Testing performed by : [address] [address] Urine 07/25/2023 8:57 AM CDT 07/25/2023 3:20 PM CDT Narrative CARA WATERS (JEEVAN) - 07/25/2023 5:47 PM CDT fasting us Bhanu Borja MD LAB URINE ORDERABLES Fi nal Result CARA WATERS (JEEVAN) [address] [facility] Department of Laboratories [place] [id number] * (ABNORMAL) Diabetic Eye Exam (02/27/2023) us Generic External Data Provider HEALTH MAINTENANC E Final Result * DIABETES FOOT EXAM (08/12/2019) Diabetic Foot Exam Abnormal Historical Provider HEALTH MAINTENANCE Final Result * COLONOSCOPY (06/28/2013) Colonoscopy Normal Historical Provider HEALTH MAINTENANCE Final Result from Last 3 Months or Most Recently Relevant to Health Maintenance Insurance [facility] [address] [facility] MEDICARE ADVANTAGE [employer] [place] [employer] [place] [facility] [place] [place] [address] Advance Directives For more information, please contact: [phone] * Full Code (Latest Code Status on [...] 5:21 PM 08/30/2017 5:48 PM Care Teams Landscape And Yardwork Laborer Relationship Specialty Start Date End Date Bhanu Borja MD PCP - General 07/01/16
--- OUTSIDE RECORDS SUMMARY | 2024-07-26 11:05 | XMS_ITS | Encounter Summary ---
Author Organization [facility] Address [address] [place] [address] Care Team Providers Care Pearl Restorer Name Role Phone Unavailable Primary Care Provider Unavailabl e Encounter Details Date Type Department Care Team (Late st Contact Info) Description 12/02/2022 Lab Requisition [facility] [address] [place] [id number] Juan Maldonado Jr., MD [address] [place] [address] Social History Tobacco Use Types Packs/Day Years [...] Priority Date/Time Associated Diagnosis Comments DERMATOPATHOLOGY Routine 12/01/2022 12:0 0 AM CDT documented in this encounter Results * DERMATOPATHOLOGY (12/01/2022 12:00 AM CDT) Case Report Dermatopathology Report Case: [id number] Authorizing Provider: Juan Maldonado Jr., MD Collected: 12/01/2022 12:00 AM Ordering Location: [facility] Received: 12/02/2022 01:31 PM Pathologist: Donna Gomez MD Specimen: Skin, right central zygoma 4:01 PM CDT DERMATOPATHOLOGY LABORATORY Final Diagnosis Specimen A. 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 4:01 PM CDT DERMATOPATHOLOGY LABORATORY Gross Description Specimen A: Received is one formalin filled container labeled with the patient's name and designated right central zygoma. The specimen consists of a shave biopsy measuring 5x4x1 mm. Jar 0. 4:01 PM CDT DERMATOPATHOLOGY LABORATORY Microscopic Description Specimen A. SKIN, right central zygoma: There is focal parakeratosis. The lower half of the epidermis shows disorderly maturation of keratinocytes with nuclear pleomorphism. Focally there is a suprabasilar cleft with acantholytic cells. 4:01 PM CDT DERMATOPATHOLOGY LABORATORY Disclaimer An external and internal positive and negative controls are appropriate for the histochemical, immunohistochemical and immunofluorescence stain(s) in this case (if any), except where stated explicitly. The performance characteristics of the stain(s) cited in this report were developed and its performance characteristic determined by the Dermatopathology Laboratory at [facility], directed by Dr. Afia Gomez. These tests need not be, and therefore are not, approved by the [place] Food and Drug Administration. The tests are used for clinical purposes. Billing Codes Specimen Charges Stain Charges 27597 1 3 4:01 PM CDT DERMATOPATHOLOGY LABORATORY Embedded Images 4:01 PM CDT DERMATOPATHOLOGY LABORATORY Pathology/Cytolog y TISSUE SPECIMEN FROM SKIN / Unknown 12/01/2022 12/02/2022 1:31 PM CDT Juan Maldonado Jr., MD LAB - PATHOLOGY/CYTOLOG Y ORDERABLES Final Result DERMATOPATHOLOGY LABORATORY [facility] - Department of Dermatology [address] [place] [address], [facility] [phone] documented in this encounter Visit Diagnoses Not on filedocumented in this encounter
--- OUTSIDE RECORDS SUMMARY | 2024-07-26 11:05 | XMS_ITS | Encounter Summary ---
Author Organization [facility] Address [address] [place] [address] Phone Care Team Providers Care Grain Inspector Name Role Phone Bhanu Borja MD Primary Care Provider Elda Bragg FIRE BOAT ENGINEER Unavailable Unavailabl Elda Tran FIRE BOAT ENGINEER Unavailable Unavailabl e Eunice Palacios FIRE BOAT ENGINEER Unavailable [phone] Jose Eduardo Navarro RN Unavailable [phone] Encounter Details Date Type Department Care Team (Late st Contact Info) Description 05/31/2017 Orders Only [facility] ProviderJose Armando MD [address] [place] [id number] Social History Tobacco Use Types Packs/Day Years Used Date Smoking Tobacco: Never Alcohol Use Standard Drinks/Week Comments Yes 0 (1 standard drink = 0.6 oz pur e alcohol) Sex and Gender Information Value Date Recorded Sex Assigned at Not on file Legal Sex Male 7:43 PM CHEMICAL COMPOUNDER HELPER Gender Identity Not on file Sexual Orientation Not on file documented as of this encounter Plan of Treatment Upcoming Encounters Date Type Department Care Team (Latest Contact Info) Description 08/02/2024 9:40 AM CDT Hospital Encounter [facility] Operating Room [address] [place] [address] Bhanu Maddox MD [address] [place] [address] [address] [place] [address] 08/02/2024 9:40 AM CDT - 08/02/2024 11:10 AM CDT Surgery [facility] Operating Room [address] [place] [address] Bhanu Maddox MD [address] [facility] [address] [place] [address] Left Knee Arthroscopy with Medial Meniscectomy- Arthroscopy Equipments, Cooling Unit-Polar Care, 1 Liter Beta Rinse 09/03/2024 12:00 PM CDT Hospital Encounter [address] [address] Dorian Rodrigues MD [address] [facility] [address] [place] [address] 09/03/2024 12:00 PM CDT - 09/03/2024 12:30 PM CDT Surgery [address] [address] Dorian Rodrigues MD [address] [facility] [address] [place] [address] COLONOSCOPY Scheduled Procedures Name Priority Associated Diagnoses Date/Ti me ARTHROSCOPY KNEE Acute medial meniscus tear of left knee, initial encounter 08/02/2024 9:40 AM CDT COLONOSCOPY Encounter for screening colonoscopy 09/03/2024 12:00 PM CDT documented as of this encounter Procedures Procedure Name Priority Date/Time Associated Diagnosis Comments DISCHARGE LABORATORY CUMULATIVE REPORT 05/31/2017 12:00 AM CHEMICAL COMPOUNDER HELPER documented in this encounter Results * DISCHARGE LABORATORY CUMULATIVE REPORT (05/31/2017 12:00 AM CHEMICAL COMPOUNDER HELPER) Narrative 05/31/2017 12:00 AM CHEMICAL COMPOUNDER HELPER Ordered by an unspecified provider. us Historical Provider LAB BLOOD ORDERABLES Yolanda l Result documented in this encounter Visit Diagnoses Not on filedocumented in this encounter Additional Health Concerns Infection Onset Date Last Indicated Resolved Time COVID: Suspected 04/27/2021 04/27/2021 04/27/2021 9:42 AM CHEMICAL COMPOUNDER HELPER COVID: Suspected 12/09/2022 12/08/2022 12/10/2022 3:05 AM CDT COVID: Suspected 04/11/2023 04/11/2023 04/12/2023 3:05 AM CHEMICAL COMPOUNDER HELPER documented as of this encounter Care Teams Grain Inspector Relationship Specialty Start Date End Date Bhanu Borja MD PCP - General 07/01/16 Elda Bragg LPN Care Manager 08/31/17 09/04/17 Elda Bragg LPN Care Manager 11/27/17 11/27/17 Eunice Palacios LPN Ems Director 10/14/20 10/14/20 Jose Eduardo Navarro, RN [address] [place] [address] Ems Director 04/30/21 05/27/21 documented as of this encounter
== END 2024-07-26 10:45 | disposition home or self-care (01) ==
LOC: ANHAUDIO 10:45
PROVIDERS: PCP Internal Medicine; Visit Provider Internal Medicine
DX: H90.6 Mixed conductive and sensorineural hearing loss, bilateral (principal); H93.8X1 Other specified disorders of right ear; H90.12 Conductive hearing loss, unilateral, left ear, with unrestricted hearing on the contralateral side; H74.02 Tympanosclerosis, left ear; Z01.10 Encounter for examination of ears and hearing without abnormal findings
CPT/HCPCS: 92557; 92567